=== PATIENT | female | born 1965 | race African-American/Black ===

== ENCOUNTER 2020-02-12 10:40 | Emergency (ER) | payer OTHER ==
[~2020-02-12] VITALS: Ht 177.8 cm; Wt 130.6 kg
[2020-02-12] MEDS ORDERED: HYDROcodone-ACET 10/325MG TAB PO ONE (11:15)
[2020-02-12] MEDS ORDERED: KETOROLAC TROMETH 60MG/2ML VIAL IM ONE (11:15)
[2020-02-12 13:40] VITALS: BP 148/88
== END 2020-02-12 14:15 | disposition home or self-care (01) ==
LOC: ER 10:40
DX: M25.552 Pain in left hip (principal); M25.532 Pain in left wrist; M79.18 Myalgia, other site; W11.XXXA Fall on and from ladder, initial encounter; Y93.89 Activity, other specified; Y92.89 Other specified places as the place of occurrence of the external cause; Y99.8 Other external cause status
CPT/HCPCS: 73110; 73502; 96372; 99284; J1885

== ENCOUNTER 2020-05-08 13:20 | Emergency (ER) | payer OTHER ==
[~2020-05-08] VITALS: Ht 177.8 cm; Wt 136.1 kg
[2020-05-08 14:31] VITALS: BP 150/95
[2020-05-08] MEDS ORDERED: KETOROLAC TROMETH 60MG/2ML VIAL IM ONE (14:45)
== END 2020-05-08 15:41 | disposition home or self-care (01) ==
LOC: ER 13:20
DX: G43.909 Migraine, unspecified, not intractable, without status migrainosus (principal); E23.6 Other disorders of pituitary gland
CPT/HCPCS: 70450; 96372; 99284; J1885

== ENCOUNTER 2020-11-18 12:02 | Emergency (ER) | payer OTHER ==
[~2020-11-18] VITALS: Ht 177.8 cm; Wt 123.4 kg
[2020-11-18 14:04] LABS: Basophils # (auto) 0 10 ^3/uL (0-0.2); Basophils % (auto) 0.5 % (0.0-2.0); Eosinophils # (auto) 0 10 ^3/uL (0-0.8); Eosinophils % (auto) 0.5 % (0.0-7.0); Hematocrit 40.4 % (36.0-46.0); Hemoglobin 13.8 g/dL (12.2-16.2); Lymphocytes # (auto) 1.6 10 ^3/uL (0.4-5.4); Lymphocytes % (auto) 24.1 % (10.0-50.0); Mean Corpuscular Hemoglobin 28.4 pg (28.0-32.0); Mean Corpuscular Hgb Conc. 34.1 g/dL (32.0-36.0); Mean Corpuscular Volume 83.3 fL (80.0-100.0); Monocytes # (auto) 0.5 10 ^3/uL (0-1.3); Monocytes % (auto) 7.9 % (0.0-12.0); Neutrophils # (auto) 4.4 10 ^3/uL (1.6-8.6); Nucleated Red Blood Cells % 0.1 %; Red Blood Cells 4.85 10^6/uL (4.0-5.20); White Blood Cell 6.6 10^3/uL (4.4-10.8)
[2020-11-18 14:21] LABS: Blood Urea Nitrogen 14 mg/dL (7-18); Chloride 105 mmol/L (98-107); Potassium 3.9 mmol/L (3.5-5.1); Sodium 137 mmol/L (136-145)
[2020-11-18 14:30] LABS: Alanine Aminotransferase 28 U/L (13-56); Albumin 3.5 g/dL (3.4-5.0); Alkaline Phosphatase 92 U/L (45-117); Anion Gap 9 (5-15); Aspartate Aminotransferase 26 U/L (15-37); BUN/Creatinine Ratio 18.4; Bilirubin, Total 0.4 mg/dL (0.2-1.0); Calcium 8.9 mg/dL (8.5-10.1); Carbon Dioxide 23 mmol/L (21-32); GFR African American 102 mL/min; GFR Non-African American 84 mL/min; Glucose 110 mg/dL (74-106); Lipase 63 U/L (73-393); Total Protein 8.3 g/dL (6.4-8.2)
[2020-11-18 14:47] VITALS: BP 118/71
== END 2020-11-18 14:59 | disposition home or self-care (01) ==
LOC: ER 12:02
DX: K80.80 Other cholelithiasis without obstruction (principal); R10.84 Generalized abdominal pain; I10 Essential (primary) hypertension
CPT/HCPCS: 36415; 74176; 80053; 83690; 84484; 85025; 93005

== ENCOUNTER → 2021-09-30 | Emergency (ER) | payer OTHER ==
[~2021-09-30] VITALS: Ht 177.8 cm; Wt 99.8 kg
[~2021-09-30] MED LIST: NITR-87 PO; PERCOT PO
[2021-09-30 12:32] VITALS: BP 141/69
[2021-09-30 13:06] LABS: Urine Bacteria FEW /hpf (None Seen); Urine Blood 3+ /uL (Negative); Urine Hyaline Cast FEW /lpf (0 - 2); Urine Specific Gravity 1.028 (1.001-1.035); Urine WBC 1 /hpf (0 - 5)
[2021-09-30 14:18] LABS: Basophils # (auto) 0 10 ^3/uL (0-0.2); Basophils % (auto) 0.6 % (0.0-2.0); Eosinophils # (auto) 0 10 ^3/uL (0-0.8); Eosinophils % (auto) 0.7 % (0.0-7.0); Hematocrit 39.8 % (36.0-46.0); Hemoglobin 12.7 g/dL (12.2-16.2); Lymphocytes # (auto) 1.3 10 ^3/uL (0.4-5.4); Lymphocytes % (auto) 24.1 % (10.0-50.0); Mean Corpuscular Hemoglobin 27.1 pg (28.0-32.0); Mean Corpuscular Hgb Conc. 32.1 g/dL (32.0-36.0); Mean Corpuscular Volume 84.4 fL (80.0-100.0); Monocytes # (auto) 0.6 10 ^3/uL (0-1.3); Monocytes % (auto) 10.5 % (0.0-12.0); Neutrophils # (auto) 3.5 10 ^3/uL (1.6-8.6); Neutrophils % (auto) 64.1 % (37.0-80.0); Nucleated Red Blood Cells % 0.1 %; Red Blood Cells 4.71 10^6/uL (4.0-5.20); Red Cell Distribution Width 15.1 % (11.8-14.3); White Blood Cell 5.4 10^3/uL (4.4-10.8)
[2021-09-30 14:53] LABS: Albumin 3.3 g/dL (3.4-5.0); Calcium 8.6 mg/dL (8.5-10.1)
[2021-09-30 14:55] LABS: BUN/Creatinine Ratio 25.3
[2021-09-30 14:58] LABS: Bilirubin, Total 0.4 mg/dL (0.2-1.0); Total Protein 7.1 g/dL (6.4-8.2)
== END | disposition home or self-care (01) ==
LOC: ER 11:07
DX: N20.9 Urinary calculus, unspecified (principal); N39.0 Urinary tract infection, site not specified; I10 Essential (primary) hypertension
CPT/HCPCS: 36415; 74176; 80053; 81001; 85025

== ENCOUNTER 2023-09-22 22:05 | Emergency (ER) | payer OTHER ==
[~2023-09-22] VITALS: Ht 177.8 cm; Wt 145.4 kg
[2023-09-22 23:07] LABS: Urine Bacteria None Seen /hpf (None Seen)
[2023-09-22 23:17] LABS: Basophils # (auto) 0.1 10 ^3/uL (0-0.2); Basophils % (auto) 0.6 % (0.0-2.0); Eosinophils # (auto) 0.1 10 ^3/uL (0-0.8); Eosinophils % (auto) 0.8 % (0.0-7.0); Hematocrit 40.8 % (36.0-46.0); Hemoglobin 13.6 g/dL (12.2-16.2); Lymphocytes # (auto) 2.2 10 ^3/uL (0.4-5.4); Lymphocytes % (auto) 21.3 % (10.0-50.0); Mean Corpuscular Hemoglobin 27.5 pg (28.0-32.0); Mean Corpuscular Hgb Conc. 33.4 g/dL (32.0-36.0); Mean Corpuscular Volume 82.5 fL (80.0-100.0); Monocytes # (auto) 0.7 10 ^3/uL (0-1.3); Monocytes % (auto) 6.6 % (0.0-12.0); Neutrophils # (auto) 7.4 10 ^3/uL (1.6-8.6); Neutrophils % (auto) 70.7 % (37.0-80.0); Red Blood Cells 4.94 10^6/uL (4.0-5.20); White Blood Cell 10.5 10^3/uL (4.4-10.8)
[2023-09-22 23:24] LABS: Urine Blood Negative /uL (Negative); Urine Clarity Clear (Clear); Urine Color Light-Yellow (Yellow); Urine Protein, UAD Negative (Negative); Urine Urobilinogen Normal (Negative); Urine WBC 1 /hpf (0 - 5)
[2023-09-22 23:38] LABS: Chloride 106 mmol/L (98-107); Potassium 3.8 mmol/L (3.5-5.1); Sodium 138 mmol/L (136-145)
[2023-09-22 23:39] LABS: Anion Gap 8 (5-15); Calcium 9.7 mg/dL (8.7-10.4); Carbon Dioxide 24 mmol/L (20-30)
[2023-09-22 23:44] LABS: BUN/Creatinine Ratio 16.7 (10.0-20.0); Blood Urea Nitrogen 14 mg/dL (9-23); Glucose 126 mg/dL (74-106)
[2023-09-23 07:32] VITALS: BP 159/94; PULSE 86; RESP 18; TEMP 98.7; O2SAT 97
[2023-09-23] MEDS: KETOROLAC TROMETH 60MG/2ML VIAL IM ONE (08:10)
[2023-09-23] MEDS ORDERED: TAMS-35 PO (08:23)
[2023-09-23] MEDS ORDERED: IBUP-1456 PO (08:23)
== END 2023-09-23 08:33 | disposition home or self-care (01) ==
LOC: ER 22:05
DX: N20.0 Calculus of kidney (principal); K80.20 Calculus of gallbladder without cholecystitis without obstruction; Z79.891 Long term (current) use of opiate analgesic
CPT/HCPCS: 36415; 74176; 80048; 81001; 85025; 96372; 99285; J1885

== ENCOUNTER 2024-11-18 00:27 | Inpatient (IN) | payer OTHER ==
[~2024-11-18] VITALS: Ht 177.8 cm; Wt 133.1 kg
[~2024-11-18 00:27] MED LIST changes: +IBUP-1456 PO; +TAMS-35 PO
[2024-11-18] MEDS: ASPirin-EC 325mg tab PO ONE (01:15)
[2024-11-18 01:25] LABS: Hematocrit 41.8 % (36.0-46.0); Hemoglobin 13.8 g/dL (12.2-16.2); Mean Corpuscular Hemoglobin 27.2 pg (28.0-32.0); Mean Corpuscular Volume 82.4 fL (80.0-100.0); Nucleated Red Blood Cells % 0.0 %
[2024-11-18 01:40] LABS: Alanine Aminotransferase 28 U/L (7-40); Anion Gap 12 (5-15); BUN/Creatinine Ratio 10.0 (10.0-20.0); Blood Urea Nitrogen 9 mg/dL (9-23); Calcium 9.1 mg/dL (8.7-10.4); Carbon Dioxide 25 mmol/L (20-31); Chloride 104 mmol/L (98-107); Potassium 3.6 mmol/L (3.5-5.1); Sodium 141 mmol/L (136-145); Total Protein 7.8 g/dL (5.7-8.2)
[2024-11-18 01:41] LABS: Albumin 4.2 g/dL (3.2-4.8); Bilirubin, Total 0.6 mg/dL (0.2-1.0)
[2024-11-18 01:43] LABS: Alkaline Phosphatase 117 U/L (46-116); Glucose 120 mg/dL (74-106)
--- NOTE | 2024-11-18 02:11 | DVH ---
CHEST RADIOGRAPH Indication: cp Technique: 1 view Comparison: None FINDINGS: Lines and Tubes: None Lungs: No focal consolidation. Pleura: No effusion or pneumothorax. Cardiomediastinal contours: Size within normal limits for technique. Other: No acute osseous abnormality. IMPRESSION: 1. No acute cardiopulmonary abnormality.
--- NOTE | 2024-11-18 02:38 | ED.PDOC ---
HPI Comments HPI: Initial Vitals BP: 165/92 HR: 98 RR: 20 O2: 95% Temp: 98.2 Past Medical History: Hypertension, kidney stones, morbid obesity Past Surgical History: Social History: Denies ETOH, smoking, and drug use. Medications: Allergies: SYKES: HPI: Poor Historian. 59-year-old female presents to emergency department for evaluation of three day history of right-sided chest pain radiating to the right upper back was initially intermittent but now is constant. Denies any other associated symptoms. Patient denies any family history of coronary disease. Denies any to bacco abuse. Patient has history of hypertension but she says she does not take any medications and she suspects that she has history of hyperlipidemia as well. Pain is currently 7/10. No alleviating or precipitating factors. REVIEW OF SYSTEMS: CONSTITUTIONAL: Denies acute: fever, diaphoresis, chills, generalized weakness. HEAD: Denies acute: headache, photophobia Eyes: Denies acute: Double vision, vision loss, eye pain, eye discharge. EARS: Denies acute: tinnitus, hearing loss, ear discharge, ear pain, THROAT: Denies acute: sore throat, swelling, difficulty swallowing , pain with swallowing, change in voice. NECK: Denies acute: neck pain, neck swelling, stiff neck. HEART: Denies acute : palpitations, LUNGS: Denies acute: SOB, wheezing, cough, hemoptysis ABDOMEN: Denies acute: abdominal pain, Nausea, Vomiting, diarrhea, melena , hematemesis, hematochezia SKIN: Denies acute: rash, redness, lesions, itchiness. EXTREMITIES: Denies acute: calf pain, numbness, tingling, weakness, denies pain in extremity. Denies acute: Low back pain. Neuro: Denies acute: focal neurological deficit, motor or sensory focal neurological deficit, tremors, seizure like activity, confusion, dizziness, change in mental status, loss of bowel or bladder function, cauda equina like symptoms. : Denies acute: dysuria, hematuria, flank pain, increase in urinary frequency. PSYCH: Denies acute: hallucination, suicidal ideation, homicidal ideation. FEMALE: Denies acute: abnormal vaginal bleeding, foul odor, unusual discharge. PHYSICAL EXAM: General: ---[id number]-----acute distress, awake and alert. Head: normocephalic, atraumatic. Neck: supple, trachea is midline, no swelling. Throat: Normal phonation. Eyes:, no erythema, no purulent discharge, no proptosis, no icterus. Heart: regular rate, regular rhythm, no significant murmur appreciated. Lungs: no apparent respiratory distress, Able to speak in full sentences. No wheezing, no rhonchi, no crackles. No stridors Clear to auscultation bilaterally. Abdomen: non tender to palpation, non distended, soft, no guarding, no rebound, + bowel sounds. Obese Neuro: Awake, Alert, oriented to name, self, situation, follows commands GCS=15. Speech is normal. Skin: no petechia, no purpura, no cyanosis, non-pale, not jaundice. Lower extremities: --no - Pitting edema no deformity, no focal swelling, no calf TTP. Makes eye contact. moves all four extremities. Face: no apparent facial droop. Ambulating in the ED independently. ED COURSE: DISCLAIMER: This medical document was created using an electronic medical record system with voice recognition software and computerized dictation system. Although this document has been carefully reviewed, there might still be some phonetic and typographical errors. Occasional wrong-word or "sound-alike" substitutions may have occurred due to the inherent limitations of voice recognition software. These areas are purely typographical due to imperfections of the software programs and do not reflect any compromise in the patient's medical care. Please read the chart carefully and recognize, using context, where these substitutions have occurred. Chief Complaint: Chest Pain Time Seen by MD: 02:38 Primary Care Provider: jacklyn Reviewed Notes: Allergies Allergies: Coded Allergies: No Known Drug Allergy (Verified Allergy, Unknown, 02/12/20) Home Meds Active Scripts Tamsulosin Hcl (Flomax) 0.4 Mg Cap, 1 CAP PO DAILY, #24 CAP Prov:NIKI BURRELL 09/23/23 Ibuprofen (Ibuprofen) 800 Mg Tab, 1 TAB PO TID, #30 TAB Prov:NIKI BURRELL 09/23/23 Nitrofurantoin Monohydrate Mac (Macrobid) 100 Mg Cap, 100 MG PO BID for 7 Days, #14 CAP Prov:NICOLE CRISTINA MD 09/30/21 Oxycodone W/ Acetaminophen (Percocet 5/325MG) 1 Tab Tb, 1 TAB PO BID for 7 Days, #14 TAB Prov:NICOLE CRISTINA MD 09/30/21 Information Source: Patient Mode of Arrival: Ambulatory Past Medical History PAST MEDICAL HISTORY: HTN Surgical History: Denies all surgeries REEL CART OPERATOR History: No Pertinent REEL CART OPERATOR History Family History Family History: Reviewed,noncontributory to illness Social History Smoker: Non-Smoker Alcohol: Denies ETOH Use Drugs: Denies Drug Use Lives In: Home Was a procedure done? Was a procedure done?: No CP Differential Dx Differential Diagnosis: N/A Differential Diagnosis: Other (Ddx include but not limitied to gastritis, musculoskeletal pain, radiculopathy, atypical chest pain, dissection, aneurysm, ACS, unstable angina, hiatal hernia, GERD, anxiety, costochondritis, PE, pneumothroax, neoplasm, cardiac ischemia, drug abuse, anemia.) X-Ray, Labs, Meds, VS Vital Signs Date Time Temp Pulse Resp B/P (MAP) Pulse Ox O2 Delivery O2 Flow Rate FiO2 11/18/24 03:04 100 11/18/24 02:44 98.2 82 16 164/77 (106) 97 98.2 11/18/24 02:44 164/77 11/18/24 02:44 82 11/18/24 00:41 98.2 98 20 165/92 95 98.2 11/18/24 00:36 91 Lab Test 11/18/24 03:42 11/18/24 03:20 11/18/24 01:48 11/18/24 00:37 Range/Units Troponin I High Sensitivity 3 L < 3 L < 3 L </=34 ng/L Urine Color Yellow Yellow Urine Clarity Clear Clear Urine pH 5.5 5.0-9.0 Urine Specific [place] 1.019 1.001-1.035 Urine Protein Negative Negative Urine Ketones Negative Negative Urine Blood Negative Negative /uL Urine Nitrite Negative Negative Urine Bilirubin Negative Negative Urine Urobilinogen Normal Negative mg/dL Urine Leukocyte Esterase Negative Negative /uL Urine RBC 1 0 - 4 /hpf Urine Microscopic WBC 1 0-5 /HPF Urine Squamous Epithelial Cells Few <5 /hpf Urine Bacteria None seen None Seen /hpf Urine Hyaline Casts Few 0 - 2 /lpf Urine Mucus Few None Seen Urine Glucose Normal Normal mg/dL Urine Opiates Screen Neg NEGATIVE Urine Fentanyl Screen Neg NEGATIVE Urine Barbiturates Screen Neg NEGATIVE Urine Phencyclidine Screen Neg NEGATIVE Urine Amphetamines Screen Neg NEGATIVE Urine Benzodiazepines Screen Neg NEGATIVE Urine Cocaine Screen Neg NEGATIVE Urine Cannabinoids Screen Neg NEGATIVE White Blood Count 9.6 4.4-10.8 10^3/uL Red Blood Count 5.07 4.0-5.20 10^6/uL Hemoglobin 13.8 12.2-16.2 g/dL Hematocrit 41.8 36.0-46.0 % Mean Corpuscular Volume 82.4 80.0-100.0 fL Mean Corpuscular Hemoglobin 27.2 L 28.0-32.0 pg Mean Corpuscular Hemoglobin Concent 33.0 32.0-36.0 g/dL Red Cell Distribution Width 14.6 H 11.8-14.3 % Platelet Count 323 140-450 10^3/uL Mean Platelet Volume 7.9 6.9-10.8 fL Neutrophils (%) (Auto) 58.0 37.0-80.0 % Lymphocytes (%) (Auto) 31.9 10.0-50.0 % Monocytes (%) (Auto) 7.7 0.0-12.0 % Eosinophils (%) (Auto) 1.4 0.0-7.0 % Basophils (%) (Auto) 1.0 0.0-2.0 % Neutrophils # (Auto) 5.6 1.6-8.6 10 ^3/uL Lymphocytes # (Auto) 3.1 0.4-5.4 10 ^3/uL Monocytes # (Auto) 0.7 0-1.3 10 ^3/uL Eosinophils # (Auto) 0.1 0-0.8 10 ^3/uL Basophils # (Auto) 0.1 0-0.2 10 ^3/uL Nucleated Red Blood Cells 0.0 % D-Dimer, Quantitative 0.70 H 0.0-0.49 mg/L FEU Sodium Level 141 136-145 mmol/L Potassium Level 3.6 3.5-5.1 mmol/L Chloride Level 104 98-107 mmol/L Carbon Dioxide Level 25 20-31 mmol/L Anion Gap 12 5-15 Blood Urea Nitrogen 9 9-23 mg/dL Creatinine 0.90 0.550-1.02 mg/dL Glomerular Filtration Rate Calc 74 >90 mL/min BUN/Creatinine Ratio 10.0 10.0-20.0 Serum Glucose 120 H 74-106 mg/dL Calcium Level 9.1 8.7-10.4 mg/dL Total Bilirubin 0.6 0.2-1.0 mg/dL Aspartate Amino Transferase (AST) 28 13-40 U/L Alanine Aminotransferase (ALT) 28 7-40 U/L Alkaline Phosphatase 117 H 46-116 U/L B-Type Natriuretic Peptide 20.85 0-100 pg/mL Total Protein 7.8 5.7-8.2 g/dL Albumin 4.2 3.2-4.8 g/dL [place] [id number] Ph: [phone] DIAGNOSTIC IMAGING Diagnostic Imaging Report : [id number] Signed PATIENT: ESTUARDO SYKES ACCT: [id number] UNIT: [id number] : 1965 LOC: ER ROOM / BED: / AGE / SEX: 59 / F ADM STATUS: REG ER SERVICE 7 ORDERING PHYSICIAN: JUAN DIEGO COLLAZO DO PROCEDURE(s): CXRP - CHEST PORTABLE REASON: cp ORDER NUMBER(s): [id number], ACCESSION NUMBER(s): [id number] CHEST RADIOGRAPH Indication: cp Technique: 1 view Comparison: None FINDINGS: Lines and Tubes: None Lungs: No focal consolidation. Pleura: No effusion or pneumothorax. Cardiomediastinal contours: Size within normal limits for technique. Other: No acute osseous abnormality. IMPRESSION: 1. No acute cardiopulmonary abnormality. ATED BY: JEANNETET ROD MD DICTATED DATE/TIME: 11/18/24207 SIGNED BY: JEANNETTE ROD MD SIGNED DATE/TIME: 11/18/24207 CC: [place] [id number] Ph: [phone] DIAGNOSTIC IMAGING Diagnostic Imaging Report : [id number] Signed PATIENT: ESTUARDO SYKES LACCT: [id number] UNIT: [id number] : 1965 LOC: OVERFLOW ROOM / BED: 1034- / A AGE / SEX: 59 / F ADM STATUS: ADM IN SERVICE ORDERING PHYSICIAN: JUAN DIEGO COLLAZO DO PROCEDURE(s): CTACH - CT ANGIO CHEST CONTRAST REASON: cp ORDER NUMBER(s): [id number], ACCESSION NUMBER(s): [id number] Indication: cp Technique: CT axial images of the chest are obtained with intravenous contrast per CT angiogram protocol. Coronal and sagittal reformats were obtained. Radiation Dose Information: CTDI volume is 29.2 mGy. Dose-length product is 980.35 mGy*cm Comparison: None FINDINGS: No large defect within the main left right pulmonary arteries. Segmental and subsegmental branches are suboptimally opacified/ characterized. The trachea is patent. No pneumothorax. No pulmonary airspace consolidation. Left lower lobe ground-glass nodule measuring 5 mm. Heart size at the upper limits of normal. No supraclavicular, axillary l ymphadenopathy. Cholelithiasis, hydropic/Distended gallbladder. [id number] thoracic degenerative disc disease. IMPRESSION: No evidence for large pulmonary embolism. Cholelithiasis and hydropic/ distended gallbladder. Recommend HIDA scan to exc lude cholecystitis. 5 mm left lower lobe ground-glass nodule. Recommend follow-up per Fleischner society criteria. ATED BY: RYAN BARBA MD DICTATED DATE/TIME: 11/18/24838 SIGNED BY: RYAN BARBA MD SIGNED DATE/TIME: 11/18/24838 CC: Time of 1ST Reevaluation: 02:40 Reevaluation 1ST: Unchanged Patient Education/Counseling: Diagnosis, Treatment Family Education/Counseling: No Family Present Comments MDM: patient presented with the above HPI.--cardiac----workup was initiated. patient was found with the above mentioned diagnosis. the following medications were ordered: please refer to order lists of meds and tests obtained by myself Dr. Collazo. Patient ED course and VS have been stabilized. Patient has been reassessed in the ED and remained in a stable condition. Pertinent incidental findings were discussed with the patient and/or family. Patient/family voices understanding and is agreeable with plan. Patient has been observed in the ED adequate length of time to insure improvement/stability. Escalation of care considered: Consideration of escalation to observation or admission Patient was ADMITTED to the medicine team for further evaluation and treatment of their presentation. All the reports of any imaging studies that were ordered by myself were reviewed by myself. SEPSIS Sepsis Screen Date sepsis recognized/suspect: Nov 18, 2024 Time Sepsis recognized/suspect: 0027 Recent Procedure: No On Antibiotic Therapy: No Respiratory Rate >20: No Heart Rate >90: Yes Temp<36 C (96.8 F) or >38.3 C: No SBP <90 or MAP <65 mmHG: No New Acute Mental Status Change: No Is the patient on CPAP, BIPAP,: No Physician Orders Feeder/Folder (11/18/24 ) Chest Portable (11/18/24 01:08) Electrocardigram (11/18/24 01:08) Electrocardigram (11/18/24 02:08) Electrocardigram (11/18/24 04:08) Vital Signs Date Time Temp Pulse Resp B/P (MAP) Pulse Ox O2 Delivery O2 Flow Rate FiO2 11/18/24 03:04 100 11/18/24 02:44 98.2 82 16 164/77 (106) 97 98.2 11/18/24 02:44 164/77 11/18/24 02:44 82 11/18/24 00:41 98.2 98 20 165/92 95 98.2 11/18/24 00:36 91 Laboratory Tests Test 11/18/24 00:37 White Blood Count 9.6 10^3/uL (4.4-10.8) Departure 1 Departure Time of Disposition: 02:39 Impression: Primary Impression: Chest pain Additional Impression: Cholelithiasis Disposition: ADMITTED INPATIENT Admit to: Tele Condition: Guarded Discharged With: Self Critical Care Note Critical Care Time?: No Heart Score Heart Score: Heart Score Response (Comments) Value History Moderate Suspicious 1 EKG Normal 0 Age 45-64 1 Risk Factors 1 or 2 risk factors 1 Troponin Normal limit 0 Total 3 I personally scribed for JUAN DIEGO COLLAZO DO ([email or web address]) on 11/18/24 at 02:38. Electronically submitted by Anthony Toledo ([email or web address]). I personally scribed for JUAN DIEGO COLLAZO DO ([email or web address]) on 11/18/24 at 02:41. Elect ronically submitted by Anthony Toledo ([facility]). I personally scribed for JUAN DIEGO COLLAZO DO ([email or web address]) on 11/18/24 at 02:55. El ectronically submitted by Anthony Toledo ([facility]). JUAN DIEOG COLLAZO DO Nov 18, 2024 02:38
[2024-11-18] MEDS: NITROGLYCERIN 0.4 MG SL TAB SL ONE (02:44)
[2024-11-18 03:39] LABS: Urine Protein, UAD Negative (Negative)
[2024-11-18 04:06] LABS: Amphetamine Screen, Urine Neg (NEGATIVE); Barbiturate Scree,Urine Neg (NEGATIVE); Benzodiazephine Screen, Urine Neg (NEGATIVE); Cannabinoid Screen, Urine Neg (NEGATIVE); Cocaine Screen, Urine Neg (NEGATIVE); Opiate Scree,Urine Neg (NEGATIVE); Phencyclidine Screen, Urine Neg (NEGATIVE)
--- NOTE | 2024-11-18 04:40 | DVHHPRES ---
History of Present Illness Resident Creating Document: FRANCISCO GILL RESIDENT History of Present Illness This is a 59-year-old female with past medical history of hypertension and dyslipidemia, noncompliant to medications. The patient presented to the ED with chief complaint of right-sided chest pain that radiates to the right scapula. Patient reports that symptoms started three days ago. The patient reports that she has been experiencing right-sided chest pain radiating to the right scapula, she described the pain as a sharp pain rated as 8/10 on the pain scale that worsens with deep breathing and with right upper extremity movement. Patient states that there is no significant shortness of breaths but since taking deep breaths exacerbates the pain then she is having shallow breathing. The patient denies fever, chills, abdominal tenderness, lower extremity swelling or any other associated symptoms. Upon admission CBC was grossly unremarkable, troponins came back negative, BNP was normal range but D-dimer came back slightly elevated at 0.70. EKG showed normal sinus rhythm with no ST segment elevation or depression and no T-waves abnormalities. We will order bilateral lower extremity venous Doppler to rule out DVT/PE. Upon my examination, bilateral lung sounds grossly clear, there was excruciating pain at the right s capula at the level of the muscles. Pain was 10/10 on the pain scale with mild touch. There was also bilateral lower extremity swelling 1+ pitting edema. We will admit the patient for further assessment and management. Past medical history: Hypertension, dyslipidemia Surgical history: Denies Social history: Denies alcohol, drug intake or smoking Home medications: States that he is not compliant with high blood pressure medications neither cholesterol meds. Cardiovascular: HTN, hyperipidemia Past Surgical History: None Family History: None Smoke: No ALCOHOL: none Drugs: None Lives: with Family Domestic Violence: Neg Review of Systems Constitutional: No: Fever, Chills, Sweats, Weakness, Malaise, Other Eyes: No: Pain, Vision change, Conjunctivae inflammation, Eyelid inflammation, Other, Redness ENT: No: Ear pain, Ear discharge, Nose pain, Nose discharge, Nose congestion, Mouth pain, Mouth swelling, Throat pain, Throat swelling, Other Respiratory: No: Cough, Dry, Shortness of breath, SOB with excertion, Wheezing, Hemoptysis, Pleuritic Pain, Sputum, Wheezing, Other Cardiovascular: Chest Pain, Other (Reports significant pain in the right side of the thorax as well as in the right scapula and muscles under the right scapula and neck.); No: Palpitations, Orthopnea, Paroxysmal Noc. Dyspnea, Edema, Lt Headedness Gastrointestinal: No: Nausea, Vomiting, Abdominal Pain, Diarrhea, Constipation, Melena, Hematochezia, Other Genitourinary: No Dysuria, No Frequency, No Incontinence, No Hematuria, No Retention, No Other Musculoskeletal: other (There is mild bilateral lower extremity swelling 1+ pitting edema); No: neck pain, shoulder pain, arm pain, back pain, hand pain, leg pain, foot pain Skin: No: Rash, Lesions, Jaundice, Bruising, Other Neurological: No: Weakness, Numbness, Incoordination, Change in speech, Confusion, Seizures, Other Allergies: Coded Allergies: No Known Drug Allergy (Verified Allergy, Unknown, 02/12/20) Medications Current Medications Medications Dose Ordered Sig/Lia Route Start Time Stop Time Status Last Admin Dose Admin Acetaminophen 650 mg Q6HP PRN PO 11/18/24 04:15 UNV Acetaminophen/ Hydrocodone Bitart 1 tab Q4HP PRN PO 11/18/24 04:15 UNV Enoxaparin Sodium 40 mg DAILY SC 11/18/24 10:00 UNV Cyclobenzaprine HCl 10 mg DAILY PO 11/18/24 04:15 UNV Lisinopril 10 mg DAILY PO 11/18/24 04:15 UNV Exam Vital Signs Vital Signs Date Time Temp Pulse Resp B/P (MAP) Pulse Ox O2 Delivery O2 Flow Rate FiO2 11/18/24 02:44 98.2 82 16 164/77 (106) 97 98.2 General Appearance: Alert, Oriented X3, Cooperative, No acute distress HEENT: Atraumatic, PERRLA, EOMI, Mucous membr. moist/pink Respiratory: Clear to auscultation, Normal air movement Cardiovascular: Regular rate, Normal S1, Normal S2, No murmurs Abdominal: Normal bowel sounds, Soft, No tenderness, No hepatospenomegaly, No masses Extremities: No clubbing, No cyanosis, Normal pulses, Other (There was mild lower extremity 1+ pitting edema bilaterally) Skin: No rashes, No breakdown, No significant lesion Neuro: Normal gait, Normal speech, Strength at 5/5 X4 ext, Normal tone, Sensation intact, Cranial nerves 3-12 NL, Reflexes 2+ Psych/Mental Status: Mental status NL Labs/Xrays Labs Test 11/18/24 03:42 11/18/24 03:20 11/18/24 00:37 Range/Units Troponin I High Sensitivity 3 L </=34 ng/L Urine Color Yellow Yellow Urine Clarity Clear Clear Urine pH 5.5 5.0-9.0 Urine Specific [place] 1.019 1.001-1.035 Urine Protein Negative Negative Urine Ketones Negative Negative Urine Blood Negative Negative /uL Urine Nitrite Negative Negative Urine Bilirubin Negative Negative Urine Urobilinogen Normal Negative mg/dL Urine Leukocyte Esterase Negative Negative /uL Urine RBC 1 0 - 4 /hpf Urine Microscopic WBC 1 0-5 /HPF Urine Squamous Epithelial Cells Few <5 /hpf Urine Bacteria None seen None Seen /hpf Urine Hyaline Casts Few 0 - 2 /lpf Urine Mucus Few None Seen Urine Glucose Normal Normal mg/dL Urine Opiates Screen Neg NEGATIVE Urine Fentanyl Screen Neg NEGATIVE Urine Barbiturates Screen Neg NEGATIVE Urine Phencyclidine Screen Neg NEGATIVE Urine Amphetamines Screen Neg NEGATIVE Urine Benzodiazepines Screen Neg NEGATIVE Urine Cocaine Screen Neg NEGATIVE Urine Cannabinoids Screen Neg NEGATIVE White Blood Count 9.6 4.4-10.8 10^3/uL Red Blood Count 5.07 4.0-5.20 10^6/uL Hemoglobin 13.8 12.2-16.2 g/dL Hematocrit 41.8 36.0-46.0 % Mean Corpuscular Volume 82.4 80.0-100.0 fL Mean Corpuscular Hemoglobin 27.2 L 28.0-32.0 pg Mean Corpuscular Hemoglobin Concent 33.0 32.0-36.0 g/dL Red Cell Distribution Width 14.6 H 11.8-14.3 % Platelet Count 323 140-450 10^3/uL Mean Platelet Volume 7.9 6.9-10.8 fL Neutrophils (%) (Auto) 58.0 37.0-80.0 % Lymphocytes (%) (Auto) 31.9 10.0-50.0 % Monocytes (%) (Auto) 7.7 0.0-12.0 % Eosinophils (%) (Auto) 1.4 0.0-7.0 % Basophils (%) (Auto) 1.0 0.0-2.0 % Neutrophils # (Auto) 5.6 1.6-8.6 10 ^3/uL Lymphocytes # (Auto) 3.1 0.4-5.4 10 ^3/uL Monocytes # (Auto) 0.7 0-1.3 10 ^3/uL Eosinophils # (Auto) 0.1 0-0.8 10 ^3/uL Basophils # (Auto) 0.1 0-0.2 10 ^3/uL Nucleated Red Blood Cells 0.0 % D-Dimer, Quantitative 0.70 H 0.0-0.49 mg/L FEU Sodium Level 141 136-145 mmol/L Potassium Level 3.6 3.5-5.1 mmol/L Chloride Level 104 98-107 mmol/L Carbon Dioxide Level 25 20-31 mmol/L Anion Gap 12 5-15 Blood Urea Nitrogen 9 9-23 mg/dL Creatinine 0.90 0.550-1.02 mg/dL Glomerular Filtration Rate Calc 74 >90 mL/min BUN/Creatinine Ratio 10.0 10.0-20.0 Serum Glucose 120 H 74-106 mg/dL Calcium Level 9.1 8.7-10.4 mg/dL Total Bilirubin 0.6 0.2-1.0 mg/dL Aspartate Amino Transferase (AST) 28 13-40 U/L Alanine Aminotransferase (ALT) 28 7-40 U/L Alkaline Phosphatase 117 H 46-116 U/L B-Type Natriuretic Peptide 20.85 0-100 pg/mL Total Protein 7.8 5.7-8.2 g/dL Albumin 4.2 3.2-4.8 g/dL SEPSIS Sepsis Screen Date sepsis recognized/suspect: Nov 18, 2024 Time Sepsis recognized/suspect: 0027 Recent Procedure: No On Antibiotic Therapy: No Respiratory Rate >20: No Heart Rate >90: Yes Temp<36 C (96.8 F) or >38.3 C: No SBP <90 or MAP <65 mmHG: No New Acute Mental Status Change: No Is the patient on CPAP, BIPAP,: No Physician Orders Sap Consultant (11/18/24 ) Chest Portable (11/18/24 01:08) Electrocardigram (11/18/24 01:08) Electrocardigram (11/18/24 02:08) Electrocardigram (11/18/24 04:08) Admit (11/18/24 04:07) Code Status (11/18/24 04:07) Vital Signs .PER UNIT PROTOCOL (11/18/24 04:07) Review Orders With Adm.Md (11/18/24 04:07) Encourage Activity As Tolerate (11/18/24 04:07) Regular Diet (11/18/24 Breakfast) Acetaminophen Tablet (Tylenol Tablet) (11/18/24 04:15) Notify Md Of Changes From Base (11/18/24 04:07) Advance Directive (11/18/24 04:07) Basic Metabolic Panel (11/18/24 04:07) Urinalysis (11/18/24 04:07) Complete Blood Count (11/18/24 04:07) Lipid Panel (11/18/24 04:07) Patient Condition (11/18/24 04:07) Allergies (11/18/24 04:07) Hydrocodone-Acet 5/325mg Tab ([place] 5/32 (11/18/24 04:15) Drug Screen (11/18/24 04:07) Hemoglobin A1c (11/18/24 04:07) Enoxaparin Sodium (Lovenox) (11/18/24 10:00) Bilat Lower Dvt (11/18/24 04:11) Cyclobenzaprine Tablet (Flexeril Tablet) (11/18/24 04:15) Morphine Sulfate Injection (11/18/24 04:15) Lisinopril Tablet (Zestril Tablet) (11/18/24 04:15) Strict I & O QSHIFT (11/18/24 04:15) Vital Signs Date Time Temp Pulse Resp B/P (MAP) Pulse Ox O2 Delivery O2 Flow Rate FiO2 11/18/24 02:44 98.2 82 16 164/77 (106) 97 98.2 11/18/24 02:44 164/77 11/18/24 02:44 82 11/18/24 00:41 98.2 98 20 165/92 95 98.2 11/18/24 00:36 91 Laboratory Tests Test 11/18/24 00:37 White Blood Count 9.6 10^3/uL (4.4-10.8) Medications Medications Dose Ordered Sig/Lia Route Start Time Stop Time Status Last Admin Dose Admin Aspirin 325 mg ONCE ONCE PO 11/18/24 01:15 11/18/24 01:16 DC 8/23/25 01:15 325 MG Nitroglycerin 0.4 mg ONCE ONCE SL 11/18/24 01:15 11/18/24 01:16 DC 11/18/24 02:44 0.4 MG Assessment/Plan Assessment/Plan Assessment/plan Acute right-sided chest pain, rule out ACS Acute right-sided thoracic chest pain likely musculoskeletal Acute hypoxic respiratory distress likely due to above Elevated D-dimer, R/O DVT/PE Primary hypertension Dyslipidemia Plan -patient denies history of heart failure, but there is bilateral lower extremity swelling -ordered bilateral lower extremity venous Doppler, D-dimer was slightly elevated -severe tenderness to palpation in the right scapula muscles and neck as well as right-sided thorax, most likely musculoskeletal -start lisinopril 10 mg daily -start Flexeril 10 mg daily -single dose of morphine was given in the ED -EKG showed normal sinus rhythm with no ST segment elevation/depression or T- waves abnormalities, BNP was normal range -strict in's and out's -consider echocardiogram if heart failure is still in the differentials -ordered lipid panel -ordered hemoglobin A1c -monitor blood pressure closely Goals of care discussed with the patient at bedside, full code Plan discussed with Dr. Cantu Plan discussed with: Patient My Orders Orders - FRANCISCO GILL Procedure Category Date Status Time Admit ADMIT 11/18/24 Transmitted 04:07 Code Status CODE 11/18/24 Transmitted 04:07 Vital Signs [facility] 11/18/24 In Process 04:07 Review Orders With MEL 11/18/24 In Process Adm. 04:07 Encourage Activity As MEL 11/18/24 In Process Tolerate 04:07 Regular Diet DIET 11/18/24 Transmitted Breakfast Acetaminophen Tablet PHA 11/18/24 Logged (Tylenol Tablet) 04:15 Notify Of Changes MEL 11/18/24 In Process From Base 04:07 Advance Directive MEL 11/18/24 In Process 04:07 Basic Metabolic Panel LAB 11/18/24 Logged 04:07 Urinalysis LAB 11/18/24 Logged 04:07 Complete Blood Count LAB 11/18/24 Logged 04:07 Lipid Panel LAB 11/18/24 Logged 04:07 Patient Condition ORDERS 11/18/24 Transmitted 04:07 Allergies MEL 11/18/24 In Process 04:07 Hydrocodone-Acet PHA 11/18/24 Logged 5/325mg Tab ([place] 04:15 Drug Screen LAB 11/18/24 Logged 04:07 Hemoglobin A1c LAB 11/18/24 Logged 04:07 Enoxaparin Sodium PHA 11/18/24 Logged (Lovenox) 10:00 Bilat Lower Dvt US 11/18/24 Logged 04:11 Cyclobenzaprine PHA 11/18/24 Logged Tablet (Flexeril 04:15 Morphine Sulfate PHA 11/18/24 Logged Injection 04:15 Lisinopril Tablet PHA 11/18/24 Logged (Zestril Tablet) 04:15 Strict I & O MEL 11/18/24 Transmitted 04:15 Date of Service: Nov 18, 2024 Billing Provider: FRANCISCO GILL Common Visit Codes: [id number] INP/OBS CARE (HIGH) Secondary Visit Codes: [id number] CARE PLAN 30 MINUTES FRANCISCO GILL Nov 18, 2024 04:40
[2024-11-18] MEDS: CYCLOBENZAPRINE HCL 10 MG TAB PO SCH (07:16)
[2024-11-18] MEDS: LISINOPRIL 5 MG TAB PO SCH (07:16)
--- NOTE | 2024-11-18 07:52 | DVH ---
Technique: Real-time ultrasound imaging, with color Doppler and compression of the bilateral common femoral vein, femoral vein, greater saphenous vein, and popliteal vein. Indication: R/O DVT Comparison: None Findings: There is normal compressibility and flow augmentation in all of the imaged deep veins. There are no f illing defects. Impression: No evidence of DVT in the bilateral lower extremities
--- NOTE | 2024-11-18 08:40 | DVH ---
Indication: cp Technique: CT axial images of the chest are obtained with intravenous contrast per CT angiogram prot ocol. Coronal and sagittal reformats were obtained. Radiation Dose Information: CTDI volume is 29.2 mGy. Dose-length product is 980.35 mGy*cm Comparison: None FINDINGS: No large defect within the main left right pulmonary arteries. Segmental and subsegmental branches a re suboptimally opacified/ characterized. The trachea is patent. No pneumothorax. No pulmonary airspa ce consolidation. Left lower lobe ground-glass nodule measuring 5 mm. Heart size at the upper limits of normal. No supraclavicular, axillary lymphadenopathy. Cholelithiasis, hydropic/Distended gallbladder. [id number] thoracic degenerative disc disease. IMPRESSION: No evidence for large pulmonary embolism. Cholelithiasis and hydropic/ distended gallbladder. Recommend HIDA scan to exclude cholecystitis. 5 mm left lower lobe ground-glass nodule. Recommend follow-up per Fleischner society criteria.
[2024-11-18 09:14] LABS: Hematocrit 41.6 % (36.0-46.0); Hemoglobin 14.0 g/dL (12.2-16.2); Mean Corpuscular Hemoglobin 27.4 pg (28.0-32.0); Mean Corpuscular Volume 81.7 fL (80.0-100.0); Nucleated Red Blood Cells % 0.2 %
[2024-11-18 09:26] LABS: Chloride 103 mmol/L (98-107); Potassium 3.5 mmol/L (3.5-5.1); Sodium 140 mmol/L (136-145)
[2024-11-18 09:27] LABS: Anion Gap 11 (5-15); Carbon Dioxide 26 mmol/L (20-31)
[2024-11-18 09:28] LABS: Calcium 9.3 mg/dL (8.7-10.4)
[2024-11-18 09:32] LABS: Glucose 103 mg/dL (74-106); Triglycerides 137 mg/dL (< 150)
[2024-11-18 09:33] LABS: BUN/Creatinine Ratio 13.5 (10.0-20.0); Blood Urea Nitrogen 13 mg/dL (9-23)
[2024-11-18 09:35] LABS: Cholesterol 189 mg/dL (< 200)
[2024-11-18 09:53] LABS: HDL Cholesterol 39 mg/dL (40-59)
--- NOTE | 2024-11-18 11:14 | ECG ---
[facility] Test Date: 2024-11-18 Test Time: 03:04:06 Pat Name: ESTUARDO CROSSNORE Department: ED Room: 0212 Gender: F Box Attacher: ZINA : 1965 Requested By: JUAN DIEGO COLLAZO Order Number: [id number] Reading MD: Landen Williamson Measurements Intervals Elizabeth Rate: 100 P: 61 CT: 136 QRS: 31 QRSD: 82 T: 88 QT: 349 QTc: 451 Interpretive Statements Sinus tachycardia Probable left atrial enlargement Probable LVH with secondary repol abnrm Electronically Signed On 11-21-2024 14:35:56 PDT by Landen Williamson Please click the below link to view image of tracing.
[2024-11-18] MEDS: ENOXAPARIN SOD 40 MG/0.4 ML SYRINGE SC SCH (13:06)
[2024-11-18] MEDS: MORPHINE SULFATE INJ 2 MG/ml SYRG IV ONE (13:07)
[2024-11-18] MEDS: HYDROcodone-ACET 5/325MG TAB PO PRN (13:08)
[2024-11-18] MEDS: IOHEXOL 350 MG/ML 100ML IJ ONE (13:27)
[2024-11-18 15:13] VITALS: BP 124/72; PULSE 83; RESP 18; TEMP 98.5; O2SAT 94
--- NOTE | 2024-11-18 19:00 | DVHPN2 ---
Subjective Cross covering for [facility] today. Patient is seen and evaluated. Admitted for right-sided chest/upper quadrant pain. Changes from previous H/P or p: No Changes Eyes: No Pain, No Vision change, No Conjunctivae inflammation, No Eyelid inflammation, No Other, No Redness ENT: No Ear pain, No Ear discharge, No Nose pain, No Nose discharge, No Nose congestion, No Mouth pain, No Mouth swelling, No Throat pain, No Throat swelling, No Other Cardiovascular: Chest Pain; No Palpitations, No Orthopnea, No Paroxysmal Noc. Dyspnea, No Edema, No Lt Headedness; Other (Reports significant pain in the right side of the thorax as well as in the right scapula and muscles under the right scapula and neck.) Respiratory: No Cough, No Dry, No Shortness of breath, No SOB with excertion, No Wheezing, No Hemoptysis, No Pleuritic Pain, No Sputum, No Other Gastrointestinal: No Nausea, No Vomiting, No Abdominal Pain, No Diarrhea, No Constipation, No Melena, No Hematochezia, No Other Genitourinary: No Dysuria, No Frequency, No Incontinence, No Hematuria, No Retention, No Other Musculoskeletal: other (There is mild bilateral lower extremity swelling 1+ pitting edema); No neck pain, No shoulder pain, No arm pain, No back pain, No hand pain, No leg pain, No foot pain Skin: No Rash, No Lesions, No Jaundice, No Bruising, No Other Objective Vitals Vital Signs Date Time Temp Pulse Resp B/P (MAP) Pulse Ox O2 Delivery O2 Flow Rate FiO2 11/18/24 15:13 98.5 83 18 124/72 (89) 94 98.5 Exam Alert awake oriented x3. HEENT neck supple no JVD. Heart regular rate and rhythm S1-S2. Lungs fair air movement without rales wheezes. Abdomen obese soft no significant tenderness to palpation in the right upper quadrant region. Positive active bowel sounds. Extremities no edema positive pulses. Medications Current Medications Medications Dose Ordered Sig/Lia Route Start Time Stop Time Status Last Admin Dose Admin Acetaminophen 650 mg Q6HP PRN PO 11/18/24 04:15 Acetaminophen/ Hydrocodone Bitart 1 tab Q4HP PRN PO 11/18/24 04:15 11/18/24 13:08 1 TAB Enoxaparin Sodium 40 mg DAILY SC 11/18/24 10:00 11/18/24 13:06 40 MG Cyclobenzaprine HCl 10 mg DAILY PO 11/18/24 04:15 11/18/24 13:07 10 MG Lisinopril 10 mg DAILY PO 11/18/24 04:15 11/18/24 13:07 10 MG Famotidine 20 mg Q12HR PO 11/18/24 22:00 UNV Laboratory Results Laboratory Tests 11/18/24 08:50 Chemistry Test 11/18/24 00:37 11/18/24 08:50 Albumin 4.2 g/dL (3.2-4.8) Calcium Level 9.1 mg/dL (8.7-10.4) 9.3 mg/dL (8.7-10.4) Total Protein 7.8 g/dL (5.7-8.2) Coagulation Test 11/18/24 00:37 D-Dimer, Quantitative 0.70 mg/L FEU (0.0-0.49) H Lipid panel Test 11/18/24 08:50 Cholesterol Level 189 mg/dL (< 200) HDL Cholesterol 39 mg/dL (40-59) L Triglycerides Level 137 mg/dL (< 150) Cardiac Markers Test 11/18/24 00:37 B-Type Natriuretic Peptide 20.85 pg/mL (0-100) LFT Test 11/18/24 00:37 Alanine Aminotransferase (ALT) 28 U/L (7-40) Alkaline Phosphatase 117 U/L (46-116) H Aspartate Amino Transferase (AST) 28 U/L (13-40) Total Bilirubin 0.6 mg/dL (0.2-1.0) HgA1c, TSH Test 11/18/24 08:50 Hemoglobin A1c 6.3 % A1C (<5.7) H Urinalysis Test 11/18/24 03:20 Urine Color Yellow (Yellow) Urine Clarity Clear (Clear) Urine pH 5.5 (5.0-9.0) Urine Specific [place] 1.019 (1.001-1.035) Urine Protein Negative (Negative) Urine Ketones Negative (Negative) Urine Blood Negative /uL (Negative) Urine Nitrite Negative (Negative) Urine Bilirubin Negative (Negative) Urine Urobilinogen Normal mg/dL (Negative) Urine Leukocyte Esterase Negative /uL (Negative) Urine RBC 1 /hpf (0 - 4) Urine Microscopic WBC 1 /HPF (0-5) Urine Squamous Epithelial Cells Few /hpf (<5) Urine Bacteria None seen /hpf (None Seen) Urine Hyaline Casts Few /lpf (0 - 2) Urine Mucus Few (None Seen) Urine Glucose Normal mg/dL (Normal) Assessment/Plan Assessment/Plan Acute right-sided chest pain, rule out ACS Acute right-sided thoracic chest pain likely musculoskeletal Acute hypoxic respiratory distress likely due to above Elevated D-dimer, R/O DVT/PE Primary hypertension Dyslipidemia Patient apparently has history of gallstones with a similar pain in the past. I will order right upper quadrant ultrasound. Surgical consultation. Follow the labs him. Follow clinical management per clinical course. Plan discussed with: Patient, Other My Orders Orders - CHERYL SCHILLING MD Procedure Category Date Status Time Gallbladder US 11/18/24 Transmitted 18:56 Comprehensive LAB 11/19/24 Verified Metabolic Panel 04:00 Lipase LAB 11/19/24 Verified 04:00 Famotidine Tablet PHA 11/18/24 Transmitted (Pepcid Tablet) 22:00 Date of Service: Nov 18, 2024 Billing Provider: CHERYL SCHILLING MD Common Visit Codes: [id number] INP/OBS CARE(MOD) CHERYL SCHILLING MD Nov 18, 2024 19:00
--- NOTE | 2024-11-18 19:59 | DVH ---
Procedure: US GALLBLADDER Study Date and Requested Time: 11/18/2024 07:03 PM History: Right-sided abdominal pain Comparison: CT abdomen and pelvis 09/23/2023 and 11/18/[address] angio chest 11/18/2024 Technique: Multiple high resolution rahman-scale images obtained of the right upper quadrant of the abd omen with color Doppler for evaluation of blood flow and vascularity as indicated. Findings: Liver measures 17 cm in length, with increased echogenicity and normal contours. No evidence of focal hepatic lesions, intrahepatic or extrahepatic ductal dilatation. Common bile duct measures 0.4 cm in diameter. Sludge within the moderately distended gallbladder. No cholelithiasis or gallbladder wall thickening. Positive sonographic mcdonnell's sign. Pancreas is partially obscured by bowel gas. Right kidney measures 9.8 cm in length, with normal contours, echotexture, and cortical thickness. No evidence of hydronephrosis. 2.6 cm right renal cyst. Left kidney measures 11.9 cm with no evidence o f hydronephrosis, calculi, cystic or solid renal lesion. Partially visualized inferior vena cava unremarkable. Impression: Limited evaluation due to patient's body habitus. Hepatomegaly with hepatic steatosis. Sludge within the moderately distended gallbladder with positive sonographic Mcdonnell's sign. The galls tone over the gallbladder neck on the CT abdomen and pelvis of 09/23/2023 and 11/18/2020 is not defin itely visualized on ultrasound. No gallbladder wall thickening or pericholecystic free fluid. Finding s are not definitive for acute cholecystitis. If there is persistent concern for acute cholecystitis, hepatobiliary scan should be considered for further evaluation.
[2024-11-18 21:00] VITALS: BP 112/59; PULSE 102; RESP 19; TEMP 98.1; O2SAT 93
[2024-11-18] MEDS: FAMOTIDINE 20 MG TAB PO SCH (21:13)
[2024-11-19 01:00] VITALS: BP 126/61; PULSE 88; RESP 18; TEMP 98.1; O2SAT 94
[2024-11-19 05:00] VITALS: BP 127/70; PULSE 86; RESP 16; TEMP 97.9; O2SAT 94
[2024-11-19 07:37] LABS: Alanine Aminotransferase 29 U/L (7-40); Albumin 4.0 g/dL (3.2-4.8); Alkaline Phosphatase 103 U/L (46-116); Anion Gap 9 (5-15); BUN/Creatinine Ratio 16.7 (10.0-20.0); Blood Urea Nitrogen 15 mg/dL (9-23); Calcium 8.9 mg/dL (8.7-10.4); Carbon Dioxide 27 mmol/L (20-31); Chloride 104 mmol/L (98-107); Glucose 104 mg/dL (74-106); Potassium 3.6 mmol/L (3.5-5.1); Sodium 140 mmol/L (136-145); Total Protein 6.8 g/dL (5.7-8.2)
[2024-11-19 07:38] LABS: Bilirubin, Total 0.7 mg/dL (0.2-1.0)
[2024-11-19 08:36] LABS: Lipase 27 U/L (12-53)
[2024-11-19 09:00] VITALS: BP 135/70; PULSE 75; RESP 16; TEMP 97.9; O2SAT 93
[2024-11-19 13:00] VITALS: BP 146/86; PULSE 98; RESP 16; TEMP 98; O2SAT 95
[2024-11-19 17:00] VITALS: BP 150/81; PULSE 76; RESP 16; TEMP 98; O2SAT 93
--- NOTE | 2024-11-19 17:35 | DVHPN2 ---
Subjective Cross covering for [facility] today. Patient is seen and evaluated. Gallbladder ultrasound no acute cholecystitis. Changes from previous H/P or p: No Changes Eyes: No Pain, No Vision change, No Conjunctivae inflammation, No Eyelid inflammation, No Other, No Redness ENT: No Ear pain, No Ear discharge, No Nose pain, No Nose discharge, No Nose congestion, No Mouth pain, No Mouth swelling, No Throat pain, No Throat swelling, No Other Cardiovascular: Chest Pain; No Palpitations, No Orthopnea, No Paroxysmal Noc. Dyspnea, No Edema, No Lt Headedness; Other (Reports significant pain in the right side of the thorax as well as in the right scapula and muscles under the right scapula and neck.) Respiratory: No Cough, No Dry, No Shortness of breath, No SOB with excertion, No Wheezing, No Hemoptysis, No Pleuritic Pain, No Sputum, No Other Gastrointestinal: No Nausea, No Vomiting, No Abdominal Pain, No Diarrhea, No Constipation, No Melena, No Hematochezia, No Other Genitourinary: No Dysuria, No Frequency, No Incontinence, No Hematuria, No Retention, No Other Musculoskeletal: other (There is mild bilateral lower extremity swelling 1+ pitting edema); No neck pain, No shoulder pain, No arm pain, No back pain, No hand pain, No leg pain, No foot pain Skin: No Rash, No Lesions, No Jaundice, No Bruising, No Other Objective Vitals Vital Signs Date Time Temp Pulse Resp B/P (MAP) Pulse Ox O2 Delivery O2 Flow Rate FiO2 11/19/24 17:00 98.0 76 16 150/81 (104) 93 98.0 Intake/Output Intake and Output 11/19/24 07:00 Intake Total 1150 ml Output Total 500 ml Balance 650 ml Intake Oral 1150 ml Output Urine Total 500 ml Exam Alert awake oriented x3. HEENT neck supple no JVD. Heart regular rate and rhythm S1-S2. Lungs fair air movement without rales wheezes. Abdomen obese soft no significant tenderness to palpation in the right upper quadrant region. Positive active bowel sounds. Extremities no edema positive pulses. Medications Current Medications Medications Dose Ordered Sig/Lai Route Start Time Stop Time Status Last Admin Dose Admin Acetaminophen 650 mg Q6HP PRN PO 11/18/24 04:15 Acetaminophen/ Hydrocodone Bitart 1 tab Q4HP PRN PO 11/18/24 04:15 11/19/24 02:06 1 TAB Enoxaparin Sodium 40 mg DAILY SC 11/18/24 10:00 11/19/24 10:01 40 MG Cyclobenzaprine HCl 10 mg DAILY PO 11/18/24 04:15 11/19/24 10:01 10 MG Lisinopril 10 mg DAILY PO 11/18/24 04:15 11/19/24 10:01 10 MG Famotidine 20 mg Q12HR PO 11/18/24 22:00 11/19/24 10:01 20 MG Laboratory Results Laboratory Tests 11/18/24 08:50 11/19/24 05:55 Chemistry Test 11/19/24 05:55 Albumin 4.0 g/dL (3.2-4.8) Calcium Level 8.9 mg/dL (8.7-10.4) Total Protein 6.8 g/dL (5.7-8.2) Lipid panel Test 11/19/24 05:55 Lipase 27 U/L (12-53) LFT Test 11/19/24 05:55 Alanine Aminotransferase (ALT) 29 U/L (7-40) Alkaline Phosphatase 103 U/L (46-116) Aspartate Amino Transferase (AST) 26 U/L (13-40) Total Bilirubin 0.7 mg/dL (0.2-1.0) Urinalysis Test 11/18/24 03:20 Urine Color Yellow (Yellow) Urine Clarity Clear (Clear) Urine pH 5.5 (5.0-9.0) Urine Specific [place] 1.019 (1.001-1.035) Urine Protein Negative (Negative) Urine Ketones Negative (Negative) Urine Blood Negative /uL (Negative) Urine Nitrite Negative (Negative) Urine Bilirubin Negative (Negative) Urine Urobilinogen Normal mg/dL (Negative) Urine Leukocyte Esterase Negative /uL (Negative) Urine RBC 1 /hpf (0 - 4) Urine Microscopic WBC 1 /HPF (0-5) Urine Squamous Epithelial Cells Few /hpf (<5) Urine Bacteria None seen /hpf (None Seen) Urine Hyaline Casts Few /lpf (0 - 2) Urine Mucus Few (None Seen) Urine Glucose Normal mg/dL (Normal) Assessment/Plan Assessment/Plan Acute right-sided chest pain, likely gallbladder release Acute right-sided thoracic chest pain likely musculoskeletal Acute hypoxic respiratory distress likely due to above Elevated D-dimer, R/O DVT/PE Primary hypertension Dyslipidemia We will order HIDA scan to further evaluate any gallbladder problem. Otherwise continue advance diet as she tolerates. Patient is not keen on having gallbladder surgery done. If her workup is unremarkable consider discharge home with outpatient follow up with the surgeon. Discussed with the patient's nurse at bedside Plan discussed with: Patient, Other My Orders Orders - CHERYL SCHILLING MD Procedure Category Date Status Time Gallbladder US 11/18/24 Resulted 18:56 Famotidine Tablet PHA 11/18/24 In Process (Pepcid Tablet) 22:00 * Surgical Consult CONS 11/18/24 Transmitted Nm Hida Scan NM 11/19/24 Logged 12:33 Date of Service: Nov 19, 2024 Billing Provider: CHERYL SCHILLING MD Common Visit Codes: [id number] INP/OBS CARE(MOD) CHERYL SCHILLING MD Nov 19, 2024 17:35
[2024-11-19 21:00] VITALS: BP 141/83; PULSE 89; RESP 16; TEMP 98; O2SAT 95
[2024-11-20] VITALS (8 sets, daily range): BP systolic 123–162; BP diastolic 71–92; PULSE 79–107; RESP 16–18; TEMP 97.6–100; O2SAT 96–98
--- NOTE | 2024-11-20 08:52 | ECG ---
[facility] Test Date: 2024-11-18 Test Time: 00:36:18 Pat Name: ESTUARDO CORINNE Department: ED Room: 0212 A Gender: F Head Grinder: ZINA : 1965 Requested By: JUAN DIEGO COLLAZO Order Number: [id number] Reading MD: Landen Williamson Measurements Intervals [place] Rate: 91 P: 60 AL: 142 QRS: 31 QRSD: 81 T: 88 QT: 345 QTc: 425 Interpretive Statements Sinus rhythm Nonspecific T abnormalities, lateral leads Electronically Signed On 11-21-2024 14:35:47 PDT by Landen Williamson Please click the below link to view image of tracing.
--- NOTE | 2024-11-20 11:07 | DVHPN2 ---
Subjective Patient is seen at bedside, appearing comfortable, although still complaining of pain abdominal pain Reviewed: Care Plan Changes from previous H/P or p: No Changes General: Per HPI Eyes: No Pain, No Vision change, No Conjunctivae inflammation, No Eyelid inflammation, No Other, No Redness ENT: No Ear pain, No Ear discharge, No Nose pain, No Nose discharge, No Nose congestion, No Mouth pain, No Mouth swelling, No Throat pain, No Throat swelling, No Other Cardiovascular: Chest Pain; No Palpitations, No Orthopnea, No Paroxysmal Noc. Dyspnea, No Edema, No Lt Headedness; Other (Reports significant pain in the right side of the thorax as well as in the right scapula and muscles under the right scapula and neck.) Respiratory: No Cough, No Dry, No Shortness of breath, No SOB with excertion, No Wheezing, No Hemoptysis, No Pleuritic Pain, No Sputum, No Other Gastrointestinal: No Nausea, No Vomiting, No Abdominal Pain, No Diarrhea, No Constipation, No Melena, No Hematochezia, No Other Genitourinary: No Dysuria, No Frequency, No Incontinence, No Hematuria, No Retention, No Other Musculoskeletal: other (There is mild bilateral lower extremity swelling 1+ pitting edema); No neck pain, No shoulder pain, No arm pain, No back pain, No hand pain, No leg pain, No foot pain Skin: No Rash, No Lesions, No Jaundice, No Bruising, No Other Objective Vitals Vital Signs Date Time Temp Pulse Resp B/P (MAP) Pulse Ox O2 Delivery O2 Flow Rate FiO2 11/20/24 09:00 98.0 91 17 162/88 (112) 97 98.0 11/20/24 08:00 Room Air* 0 21 Intake/Output Intake and Output 11/20/24 07:00 Intake Total 1550 ml Output Total 700 ml Balance 850 ml Intake Oral 1550 ml Output Urine Total 700 ml # Voids 2 Exam GEN: Healthy appearing, well-developed, NAD. HEENT: NC/AT; MMM. CV: RRR, no m/r/g. LUNGS: CTAB, no w/r/c. ABD: Soft, NT/ND, NBS, no masses or organomegaly. Right upper quadrant tender to palpation, bowel sounds normal intact EXT: skin Warm, well perfused. no rashes. No clubbing, cyanosis, or edema. NEURO: Ambulating with no limitations. No focal deficits. Medications Current Medications Medications Dose Ordered Sig/Lia Route Start Time Stop Time Status Last Admin Dose Admin Acetaminophen 650 mg Q6HP PRN PO 11/18/24 04:15 Acetaminophen/ Hydrocodone Bitart 1 tab Q4HP PRN PO 11/18/24 04:15 11/20/24 08:56 1 TAB Enoxaparin Sodium 40 mg DAILY SC 11/18/24 10:00 11/20/24 08:55 40 MG Cyclobenzaprine HCl 10 mg DAILY PO 11/18/24 04:15 11/19/24 10:01 10 MG Lisinopril 10 mg DAILY PO 11/18/24 04:15 11/20/24 08:55 10 MG Famotidine 20 mg Q12HR PO 11/18/24 22:00 11/20/24 08:56 20 MG Laboratory Results Laboratory Tests 11/18/24 08:50 11/19/24 05:55 Urinalysis Test 11/18/24 03:20 Urine Color Yellow (Yellow) Urine Clarity Clear (Clear) Urine pH 5.5 (5.0-9.0) Urine Specific [place] 1.019 (1.001-1.035) Urine Protein Negative (Negative) Urine Ketones Negative (Negative) Urine Blood Negative /uL (Negative) Urine Nitrite Negative (Negative) Urine Bilirubin Negative (Negative) Urine Urobilinogen Normal mg/dL (Negative) Urine Leukocyte Esterase Negative /uL (Negative) Urine RBC 1 /hpf (0 - 4) Urine Microscopic WBC 1 /HPF (0-5) Urine Squamous Epithelial Cells Few /hpf (<5) Urine Bacteria None seen /hpf (None Seen) Urine Hyaline Casts Few /lpf (0 - 2) Urine Mucus Few (None Seen) Urine Glucose Normal mg/dL (Normal) Labs and/or images reviewed: Labs reviewed by me, Image(s) reviewed by me Assessment/Plan Assessment/Plan 11/20: Patient initially presented with chest pain, CTA PE study was negative for PE but finding cholelithiasis with gallbladder distention. Ultrasound was poor study due to body habitus but did fine distended gallbladder with positive Mcdonnell sign and prior gallstone at gallbladder neck isn't found on this study, no definitive signs of acute coli. HIDA scan was ordered and surgery was consulted. CMP is unconcerning, no antibiotics. Patient taken down for HIDA during the visit, we will re-attempt. Nurse identifies that pain still there right side with more towards the back, no CTA abdomen, kidney stones remain on differential. For now we will continue plan from prior provider. Gastroenteritis remains possibility. Acute right-sided chest pain, likely gallbladder release Acute right-sided thoracic chest pain likely musculoskeletal Acute hypoxic respiratory distress likely due to above Gastroenteritis? Possible Nephrolithiasis? Possible Elevated D-dimer, R/O DVT/PE Primary hypertension Dyslipidemia Plan: Pending HIDA scan Continue diet Maintenance fluids Prn pain control Med surge Full code Plan discussed with: Patient Date of Service: Nov 20, 2024 Billing Provider: ANTON RODRIGUES MD Common Visit Codes: [id number] INP/OBS CARE(HIGH) ANTON RODRIGUES MD Nov 20, 2024 11:07
[2024-11-20 12:33] LABS: Alanine Aminotransferase 28 U/L (7-40); Albumin 4.2 g/dL (3.2-4.8); Alkaline Phosphatase 105 U/L (46-116); Anion Gap 7 (5-15); BUN/Creatinine Ratio 11.3 (10.0-20.0); Bilirubin, Total 0.6 mg/dL (0.2-1.0); Blood Urea Nitrogen 11 mg/dL (9-23); Calcium 9.2 mg/dL (8.7-10.4); Carbon Dioxide 30 mmol/L (20-31); Chloride 104 mmol/L (98-107); Glucose 96 mg/dL (74-106); Potassium 3.8 mmol/L (3.5-5.1); Sodium 141 mmol/L (136-145); Total Protein 7.3 g/dL (5.7-8.2)
[2024-11-20] MEDS: POLYETHYLENE GLYCOL 17 GM PWDR PO PRN (17:10)
[2024-11-20] MEDS: FAMOTIDINE (10MG/ML) 2ML VL IV SCH (22:26)
[2024-11-21] VITALS (7 sets, daily range): BP systolic 128–162; BP diastolic 66–95; PULSE 63–105; RESP 16–18; TEMP 98–100.9; O2SAT 96–100
[2024-11-21] MEDS: ACETAMINOPHEN 325 MG TAB PO PRN (03:06)
[2024-11-21 06:36] LABS: Alanine Aminotransferase 27 U/L (7-40); Albumin 4.0 g/dL (3.2-4.8); Alkaline Phosphatase 97 U/L (46-116); Anion Gap 9 (5-15); BUN/Creatinine Ratio 11.6 (10.0-20.0); Bilirubin, Total 0.6 mg/dL (0.2-1.0); Blood Urea Nitrogen 11 mg/dL (9-23); Calcium 8.9 mg/dL (8.7-10.4); Carbon Dioxide 26 mmol/L (20-31); Chloride 103 mmol/L (98-107); Glucose 108 mg/dL (74-106); Potassium 3.8 mmol/L (3.5-5.1); Sodium 138 mmol/L (136-145); Total Protein 6.8 g/dL (5.7-8.2)
--- NOTE | 2024-11-21 09:59 | DVHPN2 ---
Subjective Patient is seen at bedside, appearing comfortable, although still complaining of pain abdominal pain Reviewed: Care Plan Changes from previous H/P or p: No Changes General: Per HPI Eyes: No Pain, No Vision change, No Conjunctivae inflammation, No Eyelid inflammation, No Other, No Redness ENT: No Ear pain, No Ear discharge, No Nose pain, No Nose discharge, No Nose congestion, No Mouth pain, No Mouth swelling, No Throat pain, No Throat swelling, No Other Cardiovascular: Chest Pain; No Palpitations, No Orthopnea, No Paroxysmal Noc. Dyspnea, No Edema, No Lt Headedness; Other (Reports significant pain in the right side of the thorax as well as in the right scapula and muscles under the right scapula and neck.) Respiratory: No Cough, No Dry, No Shortness of breath, No SOB with excertion, No Wheezing, No Hemoptysis, No Pleuritic Pain, No Sputum, No Other Gastrointestinal: No Nausea, No Vomiting, No Abdominal Pain, No Diarrhea, No Constipation, No Melena, No Hematochezia, No Other Genitourinary: No Dysuria, No Frequency, No Incontinence, No Hematuria, No Retention, No Other Musculoskeletal: other (There is mild bilateral lower extremity swelling 1+ pitting edema); No neck pain, No shoulder pain, No arm pain, No back pain, No hand pain, No leg pain, No foot pain Skin: No Rash, No Lesions, No Jaundice, No Bruising, No Other Objective Vitals Vital Signs Date Time Temp Pulse Resp B/P (MAP) Pulse Ox O2 Delivery O2 Flow Rate FiO2 11/21/24 07:45 Room Air* 0 21 11/21/24 07:15 98.4 98.4 11/21/24 05:00 105 17 131/81 (98) 96 Intake/Output Intake and Output 11/21/24 07:00 Intake Total 560 ml Output Total 1060 ml Balance -500 ml Intake Oral 560 ml Output Urine Total 1060 ml Exam GEN: Healthy appearing, well-developed, NAD. HEENT: NC/AT; MMM. CV: RRR, no m/r/g. LUNGS: CTAB, no w/r/c. ABD: Soft, NT/ND, NBS, no masses or organomegaly. Right upper quadrant tender to palpation, bowel sounds normal intact EXT: skin Warm, well perfused. no rashes. No clubbing, cyanosis, or edema. NEURO: Ambulating with no limitations. No focal deficits. Medications Current Medications Medications Dose Ordered Sig/Lia Route Start Time Stop Time Status Last Admin Dose Admin Acetaminophen 650 mg Q6HP PRN PO 11/18/24 04:15 11/21/24 03:06 650 MG Acetaminophen/ Hydrocodone Bitart 1 tab Q4HP PRN PO 11/18/24 04:15 11/20/24 18:45 1 TAB Enoxaparin Sodium 40 mg DAILY SC 11/18/24 10:00 11/20/24 08:55 40 MG Cyclobenzaprine HCl 10 mg DAILY PO 11/18/24 04:15 11/19/24 10:01 10 MG Lisinopril 10 mg DAILY PO 11/18/24 04:15 11/20/24 08:55 10 MG Famotidine 20 mg Q12HR IV 11/20/24 22:00 11/20/24 22:26 20 MG Polyethylene Glycol 17 gm DAILYPRN PRN PO 11/20/24 14:15 11/20/24 17:10 17 GM Laboratory Results Laboratory Tests 11/18/24 08:50 11/21/24 05:17 Chemistry Test 11/20/24 11:50 11/21/24 05:17 Albumin 4.2 g/dL (3.2-4.8) 4.0 g/dL (3.2-4.8) Calcium Level 9.2 mg/dL (8.7-10.4) 8.9 mg/dL (8.7-10.4) Total Protein 7.3 g/dL (5.7-8.2) 6.8 g/dL (5.7-8.2) LFT Test 11/20/24 11:50 11/21/24 05:17 Alanine Aminotransferase (ALT) 28 U/L (7-40) 27 U/L (7-40) Alkaline Phosphatase 105 U/L (46-116) 97 U/L (46-116) Aspartate Amino Transferase (AST) 25 U/L (13-40) 32 U/L (13-40) Total Bilirubin 0.6 mg/dL (0.2-1.0) 0.6 mg/dL (0.2-1.0) Urinalysis Test 11/18/24 03:20 Urine Color Yellow (Yellow) Urine Clarity Clear (Clear) Urine pH 5.5 (5.0-9.0) Urine Specific [place] 1.019 (1.001-1.035) Urine Protein Negative (Negative) Urine Ketones Negative (Negative) Urine Blood Negative /uL (Negative) Urine Nitrite Negative (Negative) Urine Bilirubin Negative (Negative) Urine Urobilinogen Normal mg/dL (Negative) Urine Leukocyte Esterase Negative /uL (Negative) Urine RBC 1 /hpf (0 - 4) Urine Microscopic WBC 1 /HPF (0-5) Urine Squamous Epithelial Cells Few /hpf (<5) Urine Bacteria None seen /hpf (None Seen) Urine Hyaline Casts Few /lpf (0 - 2) Urine Mucus Few (None Seen) Urine Glucose Normal mg/dL (Normal) Labs and/or images reviewed: Labs reviewed by me, Image(s) reviewed by me Assessment/Plan Assessment/Plan 59-year-old female with past medical history of hypertension and dyslipidemia, noncompliant to medications. The patient presented to the ED with chief complaint of right-sided chest pain that radiates to the right scapula. Patient reports that symptoms started three days ago. The patient reports that she has been experiencing right-sided chest pain radiating to the right scapula, she described the pain as a sharp pain rated as 8/10 on the pain scale that worsens with deep breathing and with right upper extremity movement. Patient states that there is no significant shortness of breaths but since taking deep breaths exacerbates the pain then she is having shallow breathing. The patient denies fever, chills, abdominal tenderness, lower extremity swelling or any other associated symptoms. Upon admission CBC was grossly unremarkable, troponins came back negative, BNP was normal range but D-dimer came back slightly elevated at 0.70. EKG showed normal sinus rhythm with no ST segment elevation or depression and no T-waves abnormalities. We will order bilateral lower extremity venous Doppler to rule out DVT/PE. Upon my examination, bilateral lung sounds grossly clear, there was excruciating pain at the right scapula at the level of the muscles. Pain was 10/10 on the pain scale with mild touch. There was also bilateral lower extremity swelling 1+ pitting edema. 11/20: Patient initially presented with chest pain, CTA PE study was negative for PE but finding cholelithiasis with gallbladder distention. Ultrasound was poor study due to body habitus but did fine distended gallbladder with positive Mcdonnell sign and prior gallstone at gallbladder neck isn't found on this study, no definitive signs of acute coli. HIDA scan was ordered and surgery was consulted. CMP is unconcerning, no antibiotics. Patient taken down for HIDA during the visit, we will re-attempt. Nurse identifies that pain still there right side with more towards the back, no CTA abdomen, kidney stones remain on differential. For now we will continue plan from prior provider. Gastroenteritis remains possibility. 11/21: HIDA was done but not read, radiology made aware. Surgery was updated, just looking at labs right now. Pain appears to be improving. No rash in affected area bowel sounds present, still no bowel movement, last was Wednesday 3 days ago, laxative was given yesterday but has not worked. Pain could be from constipation. CMP still unremarkable today. We will follow up with HIDA but if pain is controlled can likely follow up with PCP and discharge with some antibiotics and pain control. HIDA shows this is duct obstruction, surgery following plan for cholecystectomy tomorrow. NPO midnight. diagnosis: Acute right-sided chest pain, likely gallbladder release Acute right-sided thoracic chest pain likely musculoskeletal Acute hypoxic respiratory distress likely due to above Gastroenteritis? Possible Nephrolithiasis? Possible Elevated D-dimer, R/O DVT/PE Primary hypertension Dyslipidemia Plan: Pending HIDA scan Continue diet Maintenance fluids Prn pain control Med surge Full code Plan discussed with: Patient My Orders Orders - ANTON RODRIGUES MD Procedure Category Date Status Time Famotidine Injection PHA 11/20/24 In Process (Pepcid Injection) 22:00 Polyethylene Glycol PHA 11/20/24 In Process 17g Powder (Miralax 14:15 Date of Service: Nov 21, 2024 Billing Provider: ANTON RODRIGUES MD Common Visit Codes: [id number] INP/OBS CARE(HIGH) ANTON RODRIGUES MD Nov 21, 2024 09:59
[2024-11-21] MEDS ORDERED: PROCHLORPERAZINE EDISYLATE 5 MG/ML 2ML VIAL IM ONE (10:00)
[2024-11-21] MEDS: IBUPROFEN 600 MG TAB PO ONE (10:17)
--- NOTE | 2024-11-21 10:32 | DVH ---
Procedure: HIDA Exam Date: 11/20/2024 12:31 PM Clinical History: Pain Comparison Study: US GALLBLADDER on DOS: 11/18/24 Nuclear Medicine Hepatobiliary Scan. Technique: Following the intravenous administration of 5.8 mCi of technetium 99m labeled Choletec multiple planar abdominal planar images were obtained in anterior projection in 5 minute intervals for 60 minutes . Right lateral images were obtained at 240 minutes after injection. Findings: The liver appears grossly normal in size. There is no abnormal persistence of the cardiac or blood pool activity. There is excretion of activity into the small bowel. There is nonvisualization of the gallbladder. Impression: There is nonvisualization of the gallbladder. This can be seen in cystic duct obstruction. Clinical correlation advised. REP MTDD
[2024-11-21] MEDS: PROCHLORPERAZINE EDISYLATE 5 MG/ML 2ML VIAL IV ONE (10:58)
[2024-11-21 11:18] LABS: Hematocrit 38.8 % (36.0-46.0); Hemoglobin 13.2 g/dL (12.2-16.2); Mean Corpuscular Hemoglobin 27.6 pg (28.0-32.0); Mean Corpuscular Volume 81.3 fL (80.0-100.0); Nucleated Red Blood Cells % 0.2 %
--- NOTE | 2024-11-21 12:28 | DVHINCON2 ---
Date of service: Nov 21, 2024 Reason for Consultation cholelithiasis , RUQ pain History of Present Illness History Source: Patient, MD Notes Exam Limitations: No limitations HPI 59 year old female presented to the Er with complaint of right upper quadrant pa in that radiates to her back. denies any associated nausea or vomiting. The pain started three days ago. Home Meds Active Scripts Tamsulosin Hcl (Flomax) 0.4 Mg Cap, 1 CAP PO DAILY, #24 CAP Prov:NIKI BURRELL 09/23/23 Ibuprofen (Ibuprofen) 800 Mg Tab, 1 TAB PO TID, #30 TAB Prov:NIKI BURRELL 09/23/23 Nitrofurantoin Monohydrate Mac (Macrobid) 100 Mg Cap, 100 MG PO BID for 7 Days, #14 CAP Prov:NICOLE CRISTINA MD 09/30/21 Oxycodone W/ Acetaminophen (Percocet 5/325MG) 1 Tab Tb, 1 TAB PO BID for 7 Days, #14 TAB Prov:NICOLE CRISTINA MD 09/30/21 Chief Complaint of Abdominal/F: Abdominal pain Location of Abdominal Onset: RUQ Abdominal Pain Radiation: Back Past Medical History Cardiac: HTN, Other (dyslipidemia) Pulmonary: No pertinent Hx Central Nervous System: No pertinent Hx GI: No pertinent Hx Hemotology/Oncology: No pertinent Hx Hepatobiliary: No pertinent Hx Psychiatric: No pertinent Hx Musculoskeletal: No pertinent Hx Rheumotologic: No pertinent Hx Infectious Disease: No peritnent Hx ENT: No pertinent Hx Renal/: No pertinent Hx Endocrine: No pertinent Hx Dermatology: No pertinent Hx Past Surgical History: No pertinent Hx Family History: No pertinent Hx Smoker: No Hx (Negative) Alocohol: None Drugs: None Lives with: With family Review of Systems Constitutional: No symptom reported Ears, Nose, & Throat: No symptom reported Eyes: No symptom reported Pulmonary/Respiratory: No symptom reported Cardiovascular: No symptom reported Gastrointestinal: Abdominal Pain Genitourinary: No symptom reported Musculoskeletal: No symptom reported Skin: No symptom reported Psychiatric: No symptom reported Endocrine: No symptom reported Hemotologic/Lymphatic: No symptom reported H&P Exam Vital Signs Vital Signs Date Time Temp Pulse Resp B/P (MAP) Pulse Ox O2 Delivery O2 Flow Rate FiO2 11/21/24 10:18 135/95 11/21/24 09:00 98.0 84 16 96 98.0 11/21/24 07:45 Room Air* 0 21 General Appeara: Well developed, Well nourished, Obese Head Exam: Normal inspection Neck Exam: Normal inspection Eye Exam: bilateral eye Normal inspection Nasal Exam: Normal inspection Mouth: Normal Inspection Pulmonary/Respiratory: Normal inspection, Normal breath sounds Cardiovascular/Chest: Normal inspection, Regular rate, Normal Rhythm Abdominal Exam: Normal bowel sounds Abdominal Pain 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, Normal speech Neuro/Mental St: Alert, Oriented Eye contact/ Speech: Cooperative, Good eye contact Thoughts/Psych: Normal thought pattern Skin Exam: Normal inspection, Normal color Labs/Xrays Labs Test 11/21/24 10:50 11/21/24 05:17 11/19/24 05:55 11/18/24 08:50 Range/Units White Blood Count 6.9 4.4-10.8 10^3/uL Red Blood Count 4.78 4.0-5.20 10^6/uL Hemoglobin 13.2 12.2-16.2 g/dL Hematocrit 38.8 36.0-46.0 % Mean Corpuscular Volume 81.3 80.0-100.0 fL Mean Corpuscular Hemoglobin 27.6 L 28.0-32.0 pg Mean Corpuscular Hemoglobin Concent 33.9 32.0-36.0 g/dL Red Cell Distribution Width 14.6 H 11.8-14.3 % Platelet Count 303 140-450 10^3/uL Mean Platelet Volume 7.7 6.9-10.8 fL Neutrophils (%) (Auto) 55.9 37.0-80.0 % Lymphocytes (%) (Auto) 28.9 10.0-50.0 % Monocytes (%) (Auto) 12.6 H 0.0-12.0 % Eosinophils (%) (Auto) 1.9 0.0-7.0 % Basophils (%) (Auto) 0.7 0.0-2.0 % Neutrophils # (Auto) 3.9 1.6-8.6 10 ^3/uL Lymphocytes # (Auto) 2.0 0.4-5.4 10 ^3/uL Monocytes # (Auto) 0.9 0-1.3 10 ^3/uL Eosinophils # (Auto) 0.1 0-0.8 10 ^3/uL Basophils # (Auto) 0.1 0-0.2 10 ^3/uL Nucleated Red Blood Cells 0.2 % Sodium Level 138 136-145 mmol/L Potassium Level 3.8 3.5-5.1 mmol/L Chloride Level 103 98-107 mmol/L Carbon Dioxide Level 26 20-31 mmol/L Anion Gap 9 5-15 Blood Urea Nitrogen 11 9-23 mg/dL Creatinine 0.95 0.550-1.02 mg/dL Glomerular Filtration Rate Calc 69 >90 mL/min BUN/Creatinine Ratio 11.6 10.0-20.0 Serum Glucose 108 H 74-106 mg/dL Calcium Level 8.9 8.7-10.4 mg/dL Total Bilirubin 0.6 0.2-1.0 mg/dL Aspartate Amino Transferase (AST) 32 13-40 U/L Alanine Aminotransferase (ALT) 27 7-40 U/L Alkaline Phosphatase 97 46-116 U/L Total Protein 6.8 5.7-8.2 g/dL Albumin 4.0 3.2-4.8 g/dL Lipase 27 12-53 U/L Hemoglobin A1c 6.3 H <5.7 % A1C Triglycerides Level 137 < 150 mg/dL Cholesterol Level 189 < 200 mg/dL LDL Cholesterol 132 H < 100 mg/dL HDL Cholesterol 39 L 40-59 mg/dL Test 11/18/24 03:42 11/18/24 03:20 11/18/24 00:37 Range/Units Troponin I High Sensitivity 3 L </=34 ng/L Urine Color Yellow Yellow Urine Clarity Clear Clear Urine pH 5.5 5.0-9.0 Urine Specific [place] 1.019 1.001-1.035 Urine Protein Negative Negative Urine Ketones Negative Negative Urine Blood Negative Negative /uL Urine Nitrite Negative Negative Urine Bilirubin Negative Negative Urine Urobilinogen Normal Negative mg/dL Urine Leukocyte Esterase Negative Negative /uL Urine RBC 1 0 - 4 /hpf Urine Microscopic WBC 1 0-5 /HPF Urine Squamous Epithelial Cells Few <5 /hpf Urine Bacteria None seen None Seen /hpf Urine Hyaline Casts Few 0 - 2 /lpf Urine Mucus Few None Seen Urine Glucose Normal Normal mg/dL Urine Opiates Screen Neg NEGATIVE Urine Fentanyl Screen Neg NEGATIVE Urine Barbiturates Screen Neg NEGATIVE Urine Phencyclidine Screen Neg NEGATIVE Urine Amphetamines Screen Neg NEGATIVE Urine Benzodiazepines Screen Neg NEGATIVE Urine Cocaine Screen Neg NEGATIVE Urine Cannabinoids Screen Neg NEGATIVE D-Dimer, Quantitative 0.70 H 0.0-0.49 mg/L FEU B-Type Natriuretic Peptide 20.85 0-100 pg/mL Assessment/Plan Primary Diagnosis cholelithiasis Plan patient complaint of right upper quadrant pain with radiation to the back for the past few days, denies nause or vomiting positive Mcdonnell sign HIDA SCAN There is nonvisualization of the gallbladder US Sludge within the moderately distended gallbladder with positive sonographic Mcdonnell's sign. all questions answered explained the risks and complications Patient states she will think about surgery and talk with family ( she still wants to be on schedule for surgery tomorrow) labs and notes reviewed discussion with Dr. Ford Plan: NPO Laparoscopic possibly open cholecystectomy tomorrow Plan discussed with: Patient, Other (Dr. 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
--- NOTE | 2024-11-21 13:39 | DVHPN2 ---
Progress Note Date Seen: Nov 21, 2024 Medical Necessity Reason Pt with a Central, PICC or Fol: No Objective vital signs Vital Sign Date Time Temp Pulse Resp B/P (MAP) Pulse Ox O2 Delivery O2 Flow Rate FiO2 11/21/24 10:18 135/95 11/21/24 09:00 98.0 84 16 96 98.0 11/21/24 07:45 Room Air* 0 21 Total Intake and Output 11/20/24 11/20/24 11/21/24 15:00 23:00 07:00 Intake Total 120 ml 200 ml 240 ml Output Total 800 ml 260 ml Balance 120 ml -600 ml -20 ml medications Current Medications Medications Dose Ordered Sig/Lia Route Start Time Stop Time Status Last Admin Dose Admin Acetaminophen 650 mg Q6HP PRN PO 11/18/24 04:15 11/21/24 03:06 650 MG Acetaminophen/ Hydrocodone Bitart 1 tab Q4HP PRN PO 11/18/24 04:15 11/20/24 18:45 1 TAB Enoxaparin Sodium 40 mg DAILY SC 11/18/24 10:00 11/21/24 10:16 40 MG Cyclobenzaprine HCl 10 mg DAILY PO 11/18/24 04:15 11/19/24 10:01 10 MG Lisinopril 10 mg DAILY PO 11/18/24 04:15 11/21/24 10:18 10 MG Famotidine 20 mg Q12HR IV 11/20/24 22:00 11/21/24 10:18 20 MG Polyethylene Glycol 17 gm DAILYPRN PRN PO 11/20/24 14:15 11/20/24 17:10 17 GM laboratory and microbiology Laboratory Tests 11/21/24 10:50 11/21/24 05:17 Test 11/21/24 05:17 Range/Units Serum Glucose 108 H 74-106 mg/dL Problem List/Assessment/Plan Problem List/Assessment/Plan 11/21/24 hida scan indicates non visualization of the gallbladder,abdomen tender in the right upper quadrant her symptoms and hida scan suggest cholecystitis.laparoscopic vs open cholecystectomy, risks and complications explained in detail, all questions answered Plan discussed with: Patient, Other ADELIA MAX MD Nov 21, 2024 13:39
[2024-11-21 14:56] LABS: INR 0.99 (0.9-1.15); Partial Thromboplastin Time 28.8 SEC (24.5-34.5); Prothrombin Time 10.5 sec (9.3-11.8)
[2024-11-21] MEDS: D5W/LACTATED RINGERS 1,000 ML IV SCH (15:44)
[2024-11-21] MEDS: hydrALAZINE HCL 20 MG/ML VL IV ONE (23:47)
[2024-11-22 01:00] VITALS: BP 160/80; PULSE 107; RESP 19; TEMP 100.8; O2SAT 98
[2024-11-22 01:56] VITALS: BP 152/95; PULSE 102; RESP 19
[2024-11-22 05:00] VITALS: BP 164/101; PULSE 118; RESP 18; TEMP 98.8; O2SAT 95
[2024-11-22 05:33] VITALS: BP 135/78; PULSE 103
[2024-11-22 06:49] LABS: Hematocrit 40.3 % (36.0-46.0); Hemoglobin 13.8 g/dL (12.2-16.2); Mean Corpuscular Hemoglobin 27.8 pg (28.0-32.0); Mean Corpuscular Volume 81.2 fL (80.0-100.0); Nucleated Red Blood Cells % 0.1 %
[2024-11-22 06:54] LABS: Alanine Aminotransferase 33 U/L (7-40); Alkaline Phosphatase 104 U/L (46-116); Anion Gap 9 (5-15); BUN/Creatinine Ratio 9.5 (10.0-20.0); Blood Urea Nitrogen 9 mg/dL (9-23); Calcium 9.0 mg/dL (8.7-10.4); Carbon Dioxide 24 mmol/L (20-31); Chloride 103 mmol/L (98-107); Potassium 3.8 mmol/L (3.5-5.1); Sodium 136 mmol/L (136-145); Total Protein 7.2 g/dL (5.7-8.2)
[2024-11-22 06:55] LABS: Albumin 4.2 g/dL (3.2-4.8); Bilirubin, Total 0.5 mg/dL (0.2-1.0); INR 0.99 (0.9-1.15); Prothrombin Time 10.5 sec (9.3-11.8)
[2024-11-22 06:58] LABS: Glucose 123 mg/dL (74-106)
[2024-11-22] MEDS ORDERED: BUPIVACAINE 0.5% P/F INJ 10 ML VIAL ONE (08:30)
[2024-11-22] MEDS ORDERED: LIDOCAINE W/ EPINEPHRINE 1% 20ML VIAL ONE (08:30)
[2024-11-22 08:43] VITALS: BP 160/110; PULSE 101; RESP 20; TEMP 98.5; O2SAT 98
--- NOTE | 2024-11-22 09:21 | DVHPN2 ---
Progress Note Date Seen: Nov 22, 2024 Medical Necessity Reason Pt with a Central, PICC or Fol: No Objective vital signs Vital Sign Date Time Temp Pulse Resp B/P (MAP) Pulse Ox O2 Delivery O2 Flow Rate FiO2 11/22/24 08:43 98.5 101 20 160/110 (127) 98 98.5 11/21/24 20:10 Room Air* 0 21 Total Intake and Output 11/21/24 11/21/24 11/22/24 15:00 23:00 07:00 Intake Total 1306.25 ml 0 ml Output Total 1200 ml Balance 106.25 ml 0 ml medications Current Medications Medications Dose Ordered Sig/Lia Route Start Time Stop Time Status Last Admin Dose Admin Acetaminophen 650 mg Q6HP PRN PO 11/18/24 04:15 11/21/24 23:46 650 MG Acetaminophen/ Hydrocodone Bitart 1 tab Q4HP PRN PO 11/18/24 04:15 11/20/24 18:45 1 TAB Enoxaparin Sodium 40 mg DAILY SC 11/18/24 10:00 11/21/24 10:16 40 MG Cyclobenzaprine HCl 10 mg DAILY PO 11/18/24 04:15 11/19/24 10:01 10 MG Lisinopril 10 mg DAILY PO 11/18/24 04:15 11/21/24 10:18 10 MG Famotidine 20 mg Q12HR IV 11/20/24 22:00 11/21/24 23:47 20 MG Polyethylene Glycol 17 gm DAILYPRN PRN PO 11/20/24 14:15 11/20/24 17:10 17 GM Dextrose/Lactated Ringer's 1,000 ml @ 125 mls/hr Q8H IV 11/21/24 13:45 11/21/24 21:45 125 MLS/HR laboratory and microbiology Laboratory Tests 11/22/24 05:32 Test 11/22/24 05:32 Range/Units Serum Glucose 123 H 74-106 mg/dL Problem List/Assessment/Plan Problem List/Assessment/Plan 11/21/24 hida scan indicates non visualization of the gallbladder,abdomen tender in the right upper quadrant her symptoms and hida scan suggest cholecystitis.laparoscopic vs open cholecystectomy, risks and complications explained in detail, all questions answered 11/22/24 operation cancelled due to patient's refusal of surgery. will sign off, please recall if needed Plan discussed with: Patient ADELIA MAX MD Nov 22, 2024 09:21
--- NOTE | 2024-11-22 10:53 | DVHDS2 ---
Discharge Summary Date of Admission Nov 18, 2024 at 04:07 Date of Discharge: Nov 22, 2024 Labs/Diagnostic Data: Laboratory Results Test 11/22/24 05:32 11/21/24 14:14 11/19/24 05:55 11/18/24 08:50 White Blood Count 6.8 10^3/uL (4.4-10.8) Red Blood Count 4.97 10^6/uL (4.0-5.20) Hemoglobin 13.8 g/dL (12.2-16.2) Hematocrit 40.3 % (36.0-46.0) Mean Corpuscular Volume 81.2 fL (80.0-100.0) Mean Corpuscular Hemoglobin 27.8 pg (28.0-32.0) Mean Corpuscular Hemoglobin Concent 34.2 g/dL (32.0-36.0) Red Cell Distribution Width 14.6 % (11.8-14.3) Platelet Count 305 10^3/uL (140-450) Mean Platelet Volume 7.8 fL (6.9-10.8) Neutrophils (%) (Auto) 63.6 % (37.0-80.0) Lymphocytes (%) (Auto) 23.3 % (10.0-50.0) Monocytes (%) (Auto) 11.0 % (0.0-12.0) Eosinophils (%) (Auto) 1.2 % (0.0-7.0) Basophils (%) (Auto) 0.9 % (0.0-2.0) Neutrophils # (Auto) 4.3 10 ^3/uL (1.6-8.6) Lymphocytes # (Auto) 1.6 10 ^3/uL (0.4-5.4) Monocytes # (Auto) 0.7 10 ^3/uL (0-1.3) Eosinophils # (Auto) 0.1 10 ^3/uL (0-0.8) Basophils # (Auto) 0.1 10 ^3/uL (0-0.2) Nucleated Red Blood Cells 0.1 % Prothrombin Time 10.5 sec (9.3-11.8) Prothrombin Time INR 0.99 (0.9-1.15) Sodium Level 136 mmol/L (136-145) Potassium Level 3.8 mmol/L (3.5-5.1) Chloride Level 103 mmol/L (98-107) Carbon Dioxide Level 24 mmol/L (20-31) Anion Gap 9 (5-15) Blood Urea Nitrogen 9 mg/dL (9-23) Creatinine 0.95 mg/dL (0.550-1.02) Glomerular Filtration Rate Calc 69 mL/min (>90) BUN/Creatinine Ratio 9.5 (10.0-20.0) Serum Glucose 123 mg/dL (74-106) Calcium Level 9.0 mg/dL (8.7-10.4) Total Bilirubin 0.5 mg/dL (0.2-1.0) Aspartate Amino Transferase (AST) 37 U/L (13-40) Alanine Aminotransferase (ALT) 33 U/L (7-40) Alkaline Phosphatase 104 U/L (46-116) Total Protein 7.2 g/dL (5.7-8.2) Albumin 4.2 g/dL (3.2-4.8) Activated Partial Thromboplast Time 28.8 SEC (24.5-34.5) Lipase 27 U/L (12-53) Hemoglobin A1c 6.3 % A1C (<5.7) Triglycerides Level 137 mg/dL (< 150) Cholesterol Level 189 mg/dL (< 200) LDL Cholesterol 132 mg/dL (< 100) HDL Cholesterol 39 mg/dL (40-59) Test 11/18/24 03:42 11/18/24 03:20 11/18/24 00:37 Troponin I High Sensitivity 3 ng/L (</=34) Urine Color Yellow (Yellow) Urine Clarity Clear (Clear) Urine pH 5.5 (5.0-9.0) Urine Specific [place] 1.019 (1.001-1.035) Urine Protein Negative (Negative) Urine Ketones Negative (Negative) Urine Blood Negative /uL (Negative) Urine Nitrite Negative (Negative) Urine Bilirubin Negative (Negative) Urine Urobilinogen Normal mg/dL (Negative) Urine Leukocyte Esterase Negative /uL (Negative) Urine RBC 1 /hpf (0 - 4) Urine Microscopic WBC 1 /HPF (0-5) Urine Squamous Epithelial Cells Few /hpf (<5) Urine Bacteria None seen /hpf (None Seen) Urine Hyaline Casts Few /lpf (0 - 2) Urine Mucus Few (None Seen) Urine Glucose Normal mg/dL (Normal) Urine Opiates Screen Neg (NEGATIVE) Urine Fentanyl Screen Neg (NEGATIVE) Urine Barbiturates Screen Neg (NEGATIVE) Urine Phencyclidine Screen Neg (NEGATIVE) Urine Amphetamines Screen Neg (NEGATIVE) Urine Benzodiazepines Screen Neg (NEGATIVE) Urine Cocaine Screen Neg (NEGATIVE) Urine Cannabinoids Screen Neg (NEGATIVE) D-Dimer, Quantitative 0.70 mg/L FEU (0.0-0.49) B-Type Natriuretic Peptide 20.85 pg/mL (0-100) Other Laboratory Tests 11/22/24 05:32 Brief Hx & Hospital Course: 59-year-old female with past medical history of hypertension and dyslipidemia, noncompliant to medications. The patient presented to the ED with chief complaint of right-sided chest pain that radiates to the right scapula. Patient reports that symptoms started three days ago. The patient reports that she has been experiencing right-sided chest pain radiating to the right scapula, she described the pain as a sharp pain rated as 8/10 on the pain scale that worsens with deep breathing and with right upper extremity movement. Patient states that there is no significant shortness of breaths but since taking deep breaths exacerbates the pain then she is having shallow breathing. The patient denies fever, chills, abdominal tenderness, lower extremity swelling or any other associated symptoms. Upon admission CBC was grossly unremarkable, troponins came back negative, BNP was normal range but D-dimer came back slightly elevated at 0.70. EKG showed normal sinus rhythm with no ST segment elevation or depression and no T-waves abnormalities. We will order bilateral lower extremity venous Doppler to rule out DVT/PE. Upon my examination, bilateral lung sounds grossly clear, there was excruciating pain at the right scapula at the level of the muscles. Pain was 10/10 on the pain scale with mild touch. There was also bilateral lower extremity swelling 1+ pitting edema. 11/20: Patient initially presented with chest pain, CTA PE study was negative for PE but finding cholelithiasis with gallbladder distention. Ultrasound was poor study due to body habitus but did fine distended gallbladder with positive Mcdonnell sign and prior gallstone at gallbladder neck isn't found on this study, no definitive signs of acute coli. HIDA scan was ordered and surgery was consulted. CMP is unconcerning, no antibiotics. Patient taken down for HIDA during the visit, we will re-attempt. Nurse identifies that pain still there right side with more towards the back, no CTA abdomen, kidney stones remain on differential. For now we will continue plan from prior provider. Gastroenteritis remains possibility. 11/21: HIDA was done but not read, radiology made aware. Surgery was updated, just looking at labs right now. Pain appears to be improving. No rash in affected area bowel sounds present, still no bowel movement, last was Wednesday 3 days ago, laxative was given yesterday but has not worked. Pain could be from constipation. CMP still unremarkable today. We will follow up with HIDA but if pain is controlled can likely follow up with PCP and discharge with some antibiotics and pain control. HIDA shows this is duct obstruction, surgery following plan for cholecystectomy tomorrow. NPO midnight. 11/22: Patient refused surgery this a.m.. Abdominal pain improved. Remains high-risk of cholecystitis, patient agrees. We will discharge patient as refusal of care. Patient accepts all risks. Patient to follow up with PCP continue home medications. Diagnosis: Symptomatic cholelithiasis , refusal of surgical intervention Acute right upper quadrant pain, abdominal pain, intractable, due to above Gastroenteritis, infectious etiology likely chest pain, ruled out ACS Nephrolithiasis ruled out PE ruled out Hypertension Hyperlipidemia Discharge plan: - follow up with PCP continue home medications. Condition at Discharge: Fair Final Diagnosis/Problems List Symptomatic cholelithiasis , refusal of surgical intervention Acute right upper quadrant pain, abdominal pain, intractable, due to above Gastroenteritis, infectious etiology likely chest pain, ruled out ACS Nephrolithiasis ruled out PE ruled out Hypertension Hyperlipidemia Discharge Disposition: Home Discharge Instruct/Medications Diet: Regular Activity: No Restrictions, As Tolerated Follow Up/Referral: See below Medications: See below Scheduled Ibuprofen (Ibuprofen), 1 TAB PO TID Nitrofurantoin Monohydrate Mac (Macrobid), 100 MG PO BID Oxycodone W/ Acetaminophen (Percocet 5/325MG), 1 TAB PO BID Tamsulosin Hcl (Flomax), 1 CAP PO DAILY Discharge Statement: "Patient was advised to return to the ER or call 911 if any headaches, dizziness, shortness of breath, chest pain, abdominal pain, bleeding, fevers, or worsening of medical condition. Patient was counseled about treatment plan, medications, possible side effects, patientverbalized understanding. All questions were answered to the best of my ability. This discharge took greater then 30 minutes in planning, reviewing documentation, counseling the patient, and discussing with other team members." Date of Service: Nov 22, 2024 Billing Provider: ANTON RODRIGUES MD Common Visit Codes: 47048-GET/OBS DISCH DAY >30min ANTON RODRIGUES MD Nov 22, 2024 10:53
[2024-11-22 11:50] VITALS: TEMP 36.9
== END 2024-11-22 12:20 | disposition home or self-care (01) | DRG 206 ==
LOC: ER 00:33 → OVERFLOW 04:07 → CENTRAL 11-19 18:18
PROVIDERS: ADMIT Student in an Organized Health Care Education/Training Program; ATTEND Student in an Organized Health Care Education/Training Program
DX: M94.0 Chondrocostal junction syndrome [Tietze] (principal); A09 Infectious gastroenteritis and colitis, unspecified; Z68.41 Body mass index [BMI] 40.0-44.9, adult; K80.20 Calculus of gallbladder without cholecystitis without obstruction; I10 Essential (primary) hypertension; E66.01 Morbid (severe) obesity due to excess calories; E78.5 Hyperlipidemia, unspecified; K82.8 Other specified diseases of gallbladder; Z79.899 Other long term (current) drug therapy; Z91.148 Patient's other noncompliance with medication regimen for other reason; Z79.1 Long term (current) use of non-steroidal anti-inflammatories (NSAID)
CPT/HCPCS: 36415; 71045; 71275; 76705; 78226; 80048; 80053; 80061; 80307; 81001; 83036; 83690; 83880; 84484; 85025; 85379; 85610; 85730; 86850; 86900; 86901; 93005; 93970; G0378; J3490